=== PATIENT | female | born 1995 | race Caucasian/White ===

== ENCOUNTER 2017-04-15 12:22 | Emergency (ER) | payer BC ==
[~2017-04-15] VITALS: Ht 162.6 cm; Wt 61.2 kg
[2017-04-15] MEDS ORDERED: IV NORMAL SALINE 1,000ML 1,000 ML IV SCH (13:22)
[2017-04-15 13:44] LABS: BASO % 0 % (0-3); EOS # 0.1 x10^3/uL (0.0-0.7); EOS % 1 % (0-3); HEMATOCRIT 37.7 % (36.0-47.0); HEMOGLOBIN 12.9 g/dL (12.0-15.5); LYMPH # 2.8 x10^3/uL (1.0-4.8); LYMPH % 40 % (24-48); MEAN CORPUSCULAR HEMOGLOBIN 30 pg (25-35); MEAN CORPUSCULAR HGB CONC 34 g/dL (31-37); MEAN CORPUSCULAR VOLUME 88 fL (79-100); MONO # 0.4 x10^3/uL (0.0-1.1); MONO % 7 % (0-9); NEUT # 3.6 x10^3uL (1.8-7.7); NEUT % 52 % (31-73); PLATELET COUNT 207 x10^3/uL (140-400); RED BLOOD COUNT 4.28 x10^6/uL (3.50-5.40); WHITE BLOOD COUNT 6.9 x10^3/uL (4.0-11.0)
[2017-04-15 13:50] LABS: C REACTIVE PROTEIN 0.7 mg/L (0-3.3); CALCIUM 8.3 mg/dL (8.5-10.1); CREATININE 0.8 mg/dL (0.6-1.0); GFR 90.5; POTASSIUM 4.1 mmol/L (3.5-5.1)
[2017-04-15] MEDS ORDERED: KETOROLAC 30 MG/ML VIAL. IV ONE (13:50)
--- NOTE | 2017-04-15 15:17 | PHYS DOC ---
General Chief Complaint: FACE PROBLEM Stated Complaint: FACE PROBLEM Time Seen by MD: 13:22 Source: patient, family Exam Limitations: no limitations Problems: History of Present Illness Initial Comments Patient is a 22-year-old female who is accompanied by her mother with a complaint of left sided facial weakness. Patient states that this morning when she woke her grandmother took a look at her and asked her if she was feeling okay. She told the patient that she had a left-sided facial droop. The patient called her mother and came to the ED for evaluation. Patient states she has been seen at [facility] for this condition once before she says she was told that she was lying. I requested those ED records (from 2013) and the records actually reveal that the patient apparently grew tired of waiting in the waiting room he left without being seen. Patient states that she's had CT evaluation in the past and that no doctor has been able to find out why she left-sided facial weakness numbness and tingling. She denies any other ear, nose or eye symptoms no fever chills sweats or myalgias patient does state that she has a mild global headache consistent with "a normal headache." No nausea or photophobia no unexplained weight loss or night sweats. While talking with the patient I do observe her left sided of her face to be moving. Patient's vital signs are stable in the emergency department. Timing/Duration: unsure Severity: moderate Modifying Factors: improves with other Associated Symptoms: headaches, weakness, other Allergies: Coded Allergies: Sulfa (Sulfonamide Antibiotics) (Verified Allergy, Intermediate, 04/15/17) prednisone (Verified Allergy, Intermediate, 04/15/17) Past Medical History Medical History: other (orthostatic hypotension, iron deficiency (patient follows with Heme/Onc at ), asthma) Surgical History: noncontributory Social History Smoker: non-smoker Alcohol: none Drugs: none Review of Systems Constitutional: denies chills, denies diaphoresis, denies fever, denies malaise EENTM: see HPI, denies eye pain, denies ear pain, denies nose pain, denies throat pain, denies mouth pain Respiratory: denies cough, denies shortness of breath, denies wheezing Cardiovascular: denies chest pain, denies palpitations, denies syncope Gastrointestinal: denies abdominal pain, denies nausea, denies vomiting Genitourinary: denies frequency, denies hematuria Musculoskeletal: denies back pain, denies joint swelling, denies neck pain Skin: denies lesions, denies lumps, denies rash Psychiatric/Neurological: see HPI Hematologic/Lymphatic: see HPI, denies easy bleeding, denies easy bruising Physical Exam General Appearance: WD/WN, no apparent distress Eyes: bilateral eye normal inspection, bilateral eye PERRL, bilateral eye EOMI Ear, Nose, Throat: hearing grossly normal, normal ENT inspection, normal pharynx Neck: non-tender, supple Respiratory: normal breath sounds, no respiratory distress Cardiovascular: normal peripheral pulses, regular rate, rhythm Gastrointestinal: non tender, soft Back: no CVA tenderness, no vertebral tenderness Extremities: non-tender, normal inspection Neurologic/Psychiatric: 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 She lightly closes them. I repeat the requests and she states that she's been shutting them as I'm asking her to. Her mother becomes frustrated and comes over and reaches as if to put her one hand on the patient's forehead and the other on her chin. The patient closes her eyes very tightly reacting to get away. This is the same course with remainder of her facial muscle testing it is as if she is purposely putting forth no effort) Skin: normal color, warm/dry Orders, Labs, Meds I discussed indications for imaging, I do not feel it is necessary at this time. I agreed to some screening labs and IV fluids the patient received 1 L normal saline IV. CBC, chemistry, CRP all normal. 1526: I rechecked the patient she is feeling much better her headache has resolved. Her left face symptoms, tingling and numbness persist. She continues to have no facial droop and full facial muscle activation. I discussed the treatment plan moving forward. I advised the patient that she needed an outpatient neurology evaluation. 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 Patient used to see Dr. Felix but does not follow up with primary care anymore. I advised her to continue following with Dr. Felix for health maintenance and she will need to have a primary care doctor in order to receive a neurology referral. She expressed understanding. Departure Time of Disposition: 15:27 Disposition: 01 HOME, SELF-CARE Diagnosis: skin sensation disturbance NOS Condition: GOOD Additional Instructions: Aggressive hydration with gatorade, water. OTC tylenol as needed. As discussed, you need an outpatient neurologic evaluation. Follow up with Dr Felix this week for recheck and neurology referral. Return to ED with new or changing symptoms. RICARDO DURAN DO Apr 15, 2017 15:17
[2017-04-15 15:45] VITALS: BP 100/62
== END 2017-04-15 15:45 | disposition home or self-care (01) ==
LOC: ER 12:22
DX: R20.9 Unspecified disturbances of skin sensation (principal); J45.909 Unspecified asthma, uncomplicated; Z86.2 Personal history of diseases of the blood and blood-forming organs and certain disorders involving the immune mechanism; Z88.2 Allergy status to sulfonamides; Z88.8 Allergy status to other drugs, medicaments and biological substances
CPT/HCPCS: 36415; 80048; 85027; 86140; 96361; 96374; 99284; J1885; J7030

== ENCOUNTER 2018-05-31 16:58 | Emergency (ER) | payer BC ==
[~2018-05-31] VITALS: Ht 162.6 cm; Wt 72.6 kg
[2018-05-31 18:09] VITALS: BP 125/67
[2018-05-31] MEDS ORDERED: AMOXICILLIN/K CLAV 875/125MG TABLET. PO ONE (18:15)
[2018-05-31] MEDS ORDERED: AMOX1TAB61 PO (18:17)
--- NOTE | 2018-05-31 18:34 | PHYS DOC ---
Past History Past Medical History: Asthma, Depression, Other Past Surgical History: No Surgical History Alcohol Use: Occasionally Drug Use: None Adult General Chief Complaint Chief Complaint: COUGH HPI HPI 23-year-old female presents with 10 day history of progressive congestion and sinus pressure. Days ago the patient also developed a productive cough with thick sputum. She is concerned that her upper history symptoms have settled into her chest and she might get pneumonia. She had a fever at home yesterday up to 104. It was amenable to Tylenol. Her last dose of Tylenol was this morning before 8 AM. The patient is unsure of sick contacts. She denies dysuria or hematuria. She has not had nausea, vomiting, or diarrhea. Review of Systems Review of Systems Constitutional: Denies fever or chills [] Eyes: Denies change in visual acuity, redness, or eye pain [] HENT: Nasal congestion with[] Respiratory: Cough[] Cardiovascular: No additional information not addressed in HPI [] GI: Denies abdominal pain, nausea, vomiting, bloody stools or diarrhea [] : Denies dysuria or hematuria [] Musculoskeletal: Denies back pain or joint pain [] Integument: Denies rash or skin lesions [] Neurologic: Denies headache, focal weakness or sensory changes [] Endocrine: Denies polyuria or polydipsia [] All other systems were reviewed and found to be within normal limits, except as documented in this note. Current Medications Current Medications Current Medications Medications (Trade) Dose Ordered Sig/Syd Start Time Stop Time Status Last Admin Dose Admin Amoxicillin/ Clavulanate Potassium (Augmentin 875/ 125mg) 1 tab 1X ONCE 05/31/18 18:15 05/31/18 18:20 DC 05/31/18 18:22 1 TAB Allergies Allergies Allergies Coded Allergies Type Severity Reaction Last Updated Verified Sulfa (Sulfonamide Antibiotics) Allergy Intermediate 04/15/17 Yes prednisone Allergy Intermediate 04/15/17 Yes Physical Exam Physical Exam Constitutional: Well developed, well nourished, no acute distress, non-toxic appearance. [] HENT: Normocephalic, atraumatic, bilateral external ears normal, oropharynx moist, no oral exudates, nose normal. Pain to palpation over the maxillary sinuses[] Eyes: PERRLA, EOMI, conjunctiva normal, no discharge. [] Neck: Normal range of motion, no tenderness, supple, no stridor. [] Cardiovascular:Heart rate regular rhythm, no murmur [] Lungs & Thorax: Bilateral breath sounds with mild bilateral wheezes at the bases[] Abdomen: Bowel sounds normal, soft, no tenderness, no masses, no pulsatile masses. [] Skin: Warm, dry, no erythema, no rash. [] Back: No tenderness, no CVA tenderness. [] Extremities: No tenderness, no cyanosis, no clubbing, ROM intact, no edema. [] Neurologic: Alert and oriented X 3, normal motor function, normal sensory function, no focal deficits noted. [] Psychologic: Affect normal, judgement normal, mood normal. [] Current Patient Data Vital Signs Vital Signs Date Time Temp Pulse Resp B/P (MAP) Pulse Ox O2 Delivery O2 Flow Rate FiO2 05/31/18 18:09 91 18 125/67 (86) 98 Room Air 05/31/18 17:05 98.7 EKG EKG [] Radiology/Procedures Radiology/Procedures [] Course & Med Decision Making Course & Med Decision Making Pertinent Labs and Imaging studies reviewed. (See chart for details) The patient appears to have a sinusitis. I will treat her with Augmentin for 7 days. She also has some mild wheezing in her lungs. Her oxygen saturation has been normal throughout her stay in the ED. She does have mild intermittent asthma. I recommended that she use her albuterol MDI regularly for the next couple of days. She stated verbal understanding. She is stable for discharge at this time. [] Dragon Disclaimer Dragon Disclaimer This electronic medical record was generated, in whole or in part, using a voice recognition dictation system. Departure Departure: Impression: Primary Impression: Sinusitis, acute Disposition: 01 HOME, SELF-CARE Condition: STABLE Patient Instructions: Sinusitis, [id number] Scripts Amoxicillin/Potassium Clav (AUGMENTIN 875-125 TABLET) 1 Each Tablet 1 TAB PO BID, #14 TAB Prov: DAVID SWEET DO 05/31/18 DAVID SWEET DO May 31, 2018 18:34
--- NOTE | 2018-05-31 19:22 | RAD ---
Chest PA and lateral: Reason for examination: Cough and shortness of breath for 2 weeks. History of asthma. The heart size is normal. Mediastinum is unremarkable. Lung iverson are clear. No acute bony abnormalities are seen. Impression: No acute cardiopulmonary disease. Electronically signed by: Laila Banks MD (05/31/2018 7:19 PM) [facility]
== END 2018-05-31 18:23 | disposition home or self-care (01) ==
LOC: ER 16:58
DX: J01.90 Acute sinusitis, unspecified (principal); J45.909 Unspecified asthma, uncomplicated; F32.9 Major depressive disorder, single episode, unspecified; Z88.2 Allergy status to sulfonamides; Z88.8 Allergy status to other drugs, medicaments and biological substances
CPT/HCPCS: 71046; 99284

== ENCOUNTER 2019-02-05 18:13 | Emergency (ER) | payer BC ==
[~2019-02-05] VITALS: Ht 162.6 cm; Wt 74.8 kg
[~2019-02-05 18:13] MED LIST: AMOX1TAB61 PO
[2019-02-05] MEDS ORDERED: IV NORMAL SALINE 1,000ML 1,000 ML IV ONE (18:30)
--- NOTE | 2019-02-05 18:38 | PHYS DOC ---
Past History Past Medical History: Asthma, Depression, Other Past Surgical History: No Surgical History Alcohol Use: Occasionally Drug Use: None Adult General Chief Complaint Chief Complaint: SHORTNESS OF BREATH HPI HPI 23-year-old female presents with 4 day history of cough and shortness of breath. The patient has a history of asthma for which she uses albuterol. She has had increased coughing with clear sputum. She also admits that she has been weeping with CBD oil lately. He was seen in an urgent care yesterday and diagnosed with pneumonia though they did not take a chest x-ray. She was placed on Levaquin. She's had 2 doses. Patient denies fever. She has been using her albuterol times a day. She took a breathing treatment just prior to arrival. Review of Systems Review of Systems Constitutional: Denies fever or chills [] Eyes: Denies change in visual acuity, redness, or eye pain [] HENT: Denies nasal congestion or sore throat [] Respiratory: Cough with shortness of breath [] Cardiovascular: No additional information not addressed in HPI [] GI: Denies abdominal pain, nausea, vomiting, bloody stools or diarrhea [] : Denies dysuria or hematuria [] Musculoskeletal: Denies back pain or joint pain [] Integument: Denies rash or skin lesions [] Neurologic: Denies headache, focal weakness or sensory changes [] Endocrine: Denies polyuria or polydipsia [] All other systems were reviewed and found to be within normal limits, except as documented in this note. Current Medications Current Medications Current Medications Medications (Trade) Dose Ordered Sig/[facility] Start Time Stop Time Status Last Admin Dose Admin Sodium Chloride 1,000 ml @ 1,000 mls/hr 1X ONCE 02/05/19 18:30 02/05/19 19:29 Allergies Allergies Allergies Coded Allergies Type Severity Reaction Last Updated Verified Sulfa (Sulfonamide Antibiotics) Allergy Intermediate 04/15/17 Yes prednisone Allergy Intermediate 04/15/17 Yes Physical Exam Physical Exam Constitutional: Well developed, well nourished, no acute distress, non-toxic appearance. [] HENT: Normocephalic, atraumatic, bilateral external ears normal, oropharynx moist, no oral exudates, nose normal. [] Eyes: PERRLA, EOMI, conjunctiva normal, no discharge. [] Neck: Normal range of motion, no tenderness, supple, no stridor. [] Cardiovascular:Heart rate regular rhythm, no murmur [] Lungs & Thorax: Bilateral breath sounds clear to auscultation. Coughing[] Abdomen: Bowel sounds normal, soft, no tenderness, no masses, no pulsatile masses. [] Skin: Warm, dry, no erythema, no rash. [] Back: No tenderness, no CVA tenderness. [] Extremities: No tenderness, no cyanosis, no clubbing, ROM intact, no edema. [] Neurologic: Alert and oriented X 3, normal motor function, normal sensory function, no focal deficits noted. [] Psychologic: Affect normal, judgement normal, mood normal. [] EKG EKG [] Radiology/Procedures Radiology/Procedures [] Impressions: CHEST AP ONLY History: Cough, shortness of breath Comparison: May 31, 2018 Findings: Single view of the chest is submitted. There is no infiltrate, pneumothorax, or effusion. The pericardial cardiac silhouette is within normal limits in size. Impression: 1. There is no radiographic evidence of acute cardiopulmonary disease. Electronically signed by: Juanis Selby MD (02/05/2019 6:52 PM) [facility] DICTATED AND SIGNED BY: JUANIS SELBY MD DATE: 02/05/191851 CC: DAVID SWEET DO; PCP,NO ~ Course & Med Decision Making Course & Med Decision Making Pertinent Labs and Imaging studies reviewed. (See chart for details) I have given the patient a DuoNeb treatment. Her chest x-rays negative for pneumonia. Her labs are unremarkable. This is likely exasperation of her asthma. Patient does have somewhat diminished breath sounds, so I will treat her with Decadron IV. She is only allergic to the oral prednisone preparation. She is stable for discharge at this time. [] Dragon Disclaimer Dragon Disclaimer This electronic medical record was generated, in whole or in part, using a voice recognition dictation system. Departure Departure: Impression: Primary Impression: Asthma exacerbation Disposition: HOME, SELF-CARE Condition: STABLE Referrals: PCP,NO (PCP) Patient Instructions: Asthma, Adult, [id number] Problem Qualifiers Primary Impression: Asthma exacerbation Asthma severity: mild Asthma persistence: intermittent Qualified Codes: J45.21 - Mild intermittent asthma with (acute) exacerbation DAVID SWEET DO February 05, 2019 18:38
[2019-02-05] MEDS ORDERED: IPRATRPIUM/ALBUTEROL 0.5/2.5MG 3 ML NEBU. NEB ONE (18:45)
--- NOTE | 2019-02-05 18:54 | RAD ---
CHEST AP ONLY History: Cough, shortness of breath Comparison: May 31, 2018 Findings: Single view of the chest is submitted. There is no infiltrate, pneumothorax, or effusion. The pericardial cardiac silhouette is within normal limits in size. Impression: 1. There is no radiographic evidence of acute cardiopulmonary disease. Electronically signed by: Christopher Walter MD (02/05/2019 6:52 PM) [facility]
[2019-02-05] MEDS ORDERED: methylPREDNISolone SOD SUCC PF 125 MG/2 ML VIAL. IV ONE (19:15)
[2019-02-05 19:16] LABS: BASO % 1 % (0-3); EOS # 0.1 x10^3/uL (0.0-0.7); EOS % 2 % (0-3); HEMATOCRIT 40.7 % (36.0-47.0); HEMOGLOBIN 14.1 g/dL (12.0-15.5); LYMPH % 37 % (24-48); MEAN CORPUSCULAR HEMOGLOBIN 29 pg (25-35); MEAN CORPUSCULAR HGB CONC 35 g/dL (31-37); MEAN CORPUSCULAR VOLUME 85 fL (79-100); MONO # 0.7 x10^3/uL (0.0-1.1); MONO % 12 % (0-9); NEUT # 2.7 x10^3uL (1.8-7.7); NEUT % 49 % (31-73); PLATELET COUNT 196 x10^3/uL (140-400); RED BLOOD COUNT 4.82 x10^6/uL (3.50-5.40); RED CELL DISTRIBUTION WIDTH 12.2 % (11.5-14.5); WHITE BLOOD COUNT 5.6 x10^3/uL (4.0-11.0)
[2019-02-05 19:18] LABS: INFLUENZA A PATIENT NEGATIVE (NEGATIVE); INFLUENZA B PATIENT NEGATIVE (NEGATIVE)
[2019-02-05 19:27] LABS: ALBUMIN 3.9 g/dL (3.4-5.0); CREATININE 0.8 mg/dL (0.6-1.0); GFR 89.7; POTASSIUM 3.4 mmol/L (3.5-5.1); TOTAL BILIRUBIN 0.3 mg/dL (0.2-1.0); TOTAL PROTEIN 7.7 g/dL (6.4-8.2)
[2019-02-05] MEDS ORDERED: DEXAMETHASONE SOD PHOS 10 MG/ML VIAL IV ONE (19:45)
[2019-02-05 19:54] VITALS: BP 102/59
[2019-02-06] MEDS ORDERED: CODE10LI PO (23:17)
[2019-02-06] MEDS ORDERED: IPRA3AMP29 NEB (23:19)
== END 2019-02-05 20:00 | disposition home or self-care (01) ==
LOC: ER 18:13
DX: J45.21 Mild intermittent asthma with (acute) exacerbation (principal); F32.9 Major depressive disorder, single episode, unspecified; Z88.2 Allergy status to sulfonamides; Z88.8 Allergy status to other drugs, medicaments and biological substances
CPT/HCPCS: 36415; 71045; 80053; 85025; 87804; 94640; 96374; 99285; J1100; J7620; J7030

== ENCOUNTER 2019-02-06 20:42 | Emergency (ER) | payer BC ==
[~2019-02-06] VITALS: Ht 162.6 cm; Wt 74.8 kg
[2019-02-06 20:45] VITALS: BP 125/69
[2019-02-06] MEDS ORDERED: IPRATRPIUM/ALBUTEROL 0.5/2.5MG 3 ML NEBU. NEB ONE (21:30)
[2019-02-06 21:44] LABS: BASO % 0 % (0-3); EOS % 0 % (0-3); HEMATOCRIT 38.2 % (36.0-47.0); LYMPH # 1.5 x10^3/uL (1.0-4.8); LYMPH % 18 % (24-48); MEAN CORPUSCULAR HEMOGLOBIN 29 pg (25-35); MEAN CORPUSCULAR HGB CONC 34 g/dL (31-37); MEAN CORPUSCULAR VOLUME 84 fL (79-100); MONO # 0.8 x10^3/uL (0.0-1.1); MONO % 10 % (0-9); NEUT % 72 % (31-73); PLATELET COUNT 174 x10^3/uL (140-400); RED BLOOD COUNT 4.53 x10^6/uL (3.50-5.40); RED CELL DISTRIBUTION WIDTH 12.5 % (11.5-14.5); WHITE BLOOD COUNT 8.3 x10^3/uL (4.0-11.0)
[2019-02-06 22:00] LABS: ALBUMIN 3.9 g/dL (3.4-5.0); CALCIUM 9.2 mg/dL (8.5-10.1); GFR 69.3; TOTAL BILIRUBIN 0.2 mg/dL (0.2-1.0); TOTAL PROTEIN 7.7 g/dL (6.4-8.2)
[2019-02-06] MEDS ORDERED: IV NORMAL SALINE 1,000ML 1,000 ML IV ONE (22:00)
[2019-02-06] MEDS ORDERED: IOHEXOL 350 MG/ML 100 ML VIAL. IV ONE (22:00)
[2019-02-06] MEDS ORDERED: POTASSIUM CHLORIDE 20 MEQ TABLET.ER. PO ONE (22:30)
--- NOTE | 2019-02-06 22:30 | RAD ---
EXAM: CT chest with contrast - pulmonary embolus protocol CLINICAL HISTORY: Evaluate for pulmonary embolus. History of asthma. COMPARISON: None. TECHNIQUE: CT of the chest following the administration of intravenous contrast during the pulmonary arterial phase. Axial, coronal and sagittal reformatted images were generated including MIP images. ---PQRS compliance statement - One or more of the following individualized dose reduction techniques were utilized for this study: 1. Automated exposure control 2. Adjustment of the mA and/or kV according to patient size 3. Use of iterative reconstruction technique--- FINDINGS: CHEST: Diagnostic quality: Suboptimal. Pulmonary emboli: No pulmonary emboli to the level of the lobar branches. More peripheral vessels are not well assessed. Right heart strain: None Pulmonary arteries: Normal in caliber. No pleural effusion or pneumothorax. No mediastinal or hilar lymphadenopathy by size criteria. No axillary lymphadenopathy. No lobar consolidation. No suspicious lung nodule or mass is seen. Visualized Upper abdomen: Upper abdomen is unremarkable. Bones: Sclerotic focus within the right glenoid, bone island IMPRESSION: Suboptimal contrast bolus timing. Within these constraints, no pulmonary emboli to the level of the lobar branches. More peripheral vessels are not well assessed. Electronically signed by: Nickolas Morocho MD (02/06/2019 10:27 PM) [id number]
--- NOTE | 2019-02-06 22:52 | PHYS DOC ---
Past History Past Medical History: Asthma, Depression, GERD Past Surgical History: Cholecystectomy Alcohol Use: Occasionally Drug Use: None Adult General Chief Complaint Chief Complaint: DYSPNEA/RESPIRATOY DISTRESS HPI HPI When he 3-year-old female returns emergency room with continued shortness of breath. I saw her in this emergency room yesterday. She has been examined her albuterol every 4 hours, but does not feel like she can get a deep breath. The patient is on Depo-Provera shots. She denies smoking, but admits to the [facility] oil recently. She has not been camping since yesterday. Patient denies fever. She does have a cough. She denies nausea, vomiting. Review of Systems Review of Systems Constitutional: Denies fever or chills [] Eyes: Denies change in visual acuity, redness, or eye pain [] HENT: Denies nasal congestion or sore throat [] Respiratory: Cough with shortness of breath [] Cardiovascular: No additional information not addressed in HPI [] GI: Denies abdominal pain, nausea, vomiting, bloody stools or diarrhea [] : Denies dysuria or hematuria [] Musculoskeletal: Denies back pain or joint pain [] Integument: Denies rash or skin lesions [] Neurologic: Denies headache, focal weakness or sensory changes [] Endocrine: Denies polyuria or polydipsia [] All other systems were reviewed and found to be within normal limits, except as documented in this note. Current Medications Current Medications Current Medications Medications (Trade) Dose Ordered Sig/Syd Start Time Stop Time Status Last Admin Dose Admin Albuterol/ Ipratropium (Duoneb) 3 ml 1X ONCE 02/06/19 21:30 02/06/19 21:31 DC 02/06/19 20:58 3 ML Iohexol (Omnipaque 350 Mg/ml) 100 ml 1X ONCE 02/06/19 22:00 02/06/19 22:01 DC 02/06/19 21:48 100 ML Potassium Chloride (Klor-Con) 40 meq 1X ONCE 02/06/19 22:30 02/06/19 22:31 DC 02/06/19 22:35 40 MEQ Sodium Chloride 1,000 ml @ 1,000 mls/hr 1X ONCE 02/06/19 22:00 02/06/19 22:59 02/06/19 21:53 1,000 MLS/HR Allergies Allergies Allergies Coded Allergies Type Severity Reaction Last Updated Verified Sulfa (Sulfonamide Antibiotics) Allergy Intermediate 04/15/17 Yes prednisone Allergy Intermediate 02/06/19 Yes Physical Exam Physical Exam Constitutional: Well developed, well nourished, no acute distress, non-toxic appearance. [] HENT: Normocephalic, atraumatic, bilateral external ears normal, oropharynx moist, no oral exudates, nose normal. [] Eyes: PERRLA, EOMI, conjunctiva normal, no discharge. [] Neck: Normal range of motion, no tenderness, supple, no stridor. [] Cardiovascular:Heart rate regular rhythm, no murmur [] Lungs & Thorax: Bilateral breath sounds diminished but clear to auscultation [] Abdomen: Bowel sounds normal, soft, no tenderness, no masses, no pulsatile masses. [] Skin: Warm, dry, no erythema, no rash. [] Back: No tenderness, no CVA tenderness. [] Extremities: No tenderness, no cyanosis, no clubbing, ROM intact, no edema. [] Neurologic: Alert and oriented X 3, normal motor function, normal sensory function, no focal deficits noted. [] Psychologic: Affect normal, judgement normal, mood normal. [] Current Patient Data Vital Signs Vital Signs Date Time Temp Pulse Resp B/P (MAP) Pulse Ox O2 Delivery O2 Flow Rate FiO2 02/06/19 20:45 98.0 107 32 96 Room Air Lab Results Laboratory Tests Test 02/06/19 21:25 White Blood Count 8.3 x10^3/uL (4.0-11.0) Red Blood Count 4.53 x10^6/uL (3.50-5.40) Hemoglobin 13.0 g/dL (12.0-15.5) Hematocrit 38.2 % (36.0-47.0) Mean Corpuscular Volume 84 fL (79-100) Mean Corpuscular Hemoglobin 29 pg (25-35) Mean Corpuscular Hemoglobin Concent 34 g/dL (31-37) Red Cell Distribution Width 12.5 % (11.5-14.5) Platelet Count 174 x10^3/uL (140-400) Neutrophils (%) (Auto) 72 % (31-73) Lymphocytes (%) (Auto) 18 % (24-48) L Monocytes (%) (Auto) 10 % (0-9) H Eosinophils (%) (Auto) 0 % (0-3) Basophils (%) (Auto) 0 % (0-3) Neutrophils # (Auto) 6.0 x10^3uL (1.8-7.7) Lymphocytes # (Auto) 1.5 x10^3/uL (1.0-4.8) Monocytes # (Auto) 0.8 x10^3/uL (0.0-1.1) Eosinophils # (Auto) 0.0 x10^3/uL (0.0-0.7) Basophils # (Auto) 0.0 x10^3/uL (0.0-0.2) Sodium Level 142 mmol/L (136-145) Potassium Level 3.0 mmol/L (3.5-5.1) L Chloride Level 105 mmol/L (98-107) Carbon Dioxide Level 22 mmol/L (21-32) Anion Gap 15 (6-14) H Blood Urea Nitrogen 9 mg/dL (7-20) Creatinine 1.0 mg/dL (0.6-1.0) Estimated GFR (Cockcroft-Gault) 69.3 BUN/Creatinine Ratio 9 (6-20) Glucose Level 134 mg/dL (70-99) H Calcium Level 9.2 mg/dL (8.5-10.1) Total Bilirubin 0.2 mg/dL (0.2-1.0) Aspartate Amino Transferase (AST) 18 U/L (15-37) Alanine Aminotransferase (ALT) 39 U/L (14-59) Alkaline Phosphatase 83 U/L (46-116) Total Protein 7.7 g/dL (6.4-8.2) Albumin 3.9 g/dL (3.4-5.0) Albumin/Globulin Ratio 1.0 (1.0-1.7) EKG EKG [] Radiology/Procedures Radiology/Procedures [] Impressions: EXAM: CT chest with contrast - pulmonary embolus protocol CLINICAL HISTORY: Evaluate for pulmonary embolus. History of asthma. COMPARISON: None. TECHNIQUE: CT of the chest following the administration of intravenous contrast during the pulmonary arterial phase. Axial, coronal and sagittal reformatted images were generated including MIP images. ---PQRS compliance statement - One or more of the following individualized dose reduction techniques were utilized for this study: 1. Automated exposure control 2. Adjustment of the mA and/or kV according to patient size 3. Use of iterative reconstruction technique--- FINDINGS: CHEST: Diagnostic quality: Suboptimal. Pulmonary emboli: No pulmonary emboli to the level of the lobar branches. More peripheral vessels are not well assessed. Right heart strain: None Pulmonary arteries: Normal in caliber. No pleural effusion or pneumothorax. No mediastinal or hilar lymphadenopathy by size criteria. No axillary lymphadenopathy. No lobar consolidation. No suspicious lung nodule or mass is seen. Visualized Upper abdomen: Upper abdomen is unremarkable. Bones: Sclerotic focus within the right glenoid, bone island IMPRESSION: Suboptimal contrast bolus timing. Within these constraints, no pulmonary emboli to the level of the lobar branches. More peripheral vessels are not well assessed. Electronically signed by: Nickolas Morocho MD (02/06/2019 10:27 PM) [facility] DICTATED AND SIGNED BY: NICKOLAS MOROCHO MD DATE: 02/06/192226 CC: DAVID SWEET DO; PCP,NO ~ Course & Med Decision Making Course & Med Decision Making Pertinent Labs and Imaging studies reviewed. (See chart for details) The patient had a chest x-ray yesterday was negative for pneumonia. She was given a DuoNeb in the ED, which did not seem to help very much. The patient was also given 10 mg of Decadron IV yesterday. She is allergic to oral prednisone. CTA of the chest does not show PE. Her labs are unremarkable except for a potassium of 3.0. I have given her a replacement. Her vital signs are normal except for mild tachycardia. O2 saturation is normal. I'll not sure what else I can do for the patient. This is likely a viral illness exacerbating her asthma. She uses a nebulizer at home. I will give her prescription for DuoNeb to use twice a day in addition to her albuterol. I will also give her a codeine based cough syrup to help with her cough so she can sleep. She is stable for discharge at this time. [] Dragon Disclaimer Dragon Disclaimer This electronic medical record was generated, in whole or in part, using a voice recognition dictation system. Departure Departure: Impression: Primary Impression: Viral URI with cough Additional Impression: Asthma exacerbation Disposition: HOME, SELF-CARE Condition: STABLE Referrals: PCP,NO (PCP) Patient Instructions: Upper Respiratory Infection, Adult, [id number] Scripts Codeine Phosphate/Guaifenesin (Guaifen-Codeine 200-20 mg/10Ml) 10 Ml Liquid 10 ML PO Q6HRS PRN for COUGH, #1 BOTTLE Prov: DAVID SWEET DO 02/06/19 Problem Qualifiers Additional Impression: Asthma exacerbation Asthma severity: mild Asthma persistence: persistent Qualified Codes: J45.31 - Mild persistent asthma with (acute) exacerbation DAVID SWEET DO February 06, 2019 22:52
[2019-02-06] MEDS ORDERED: CODE10LI PO (23:17)
[2019-02-06] MEDS ORDERED: IPRA3AMP29 NEB (23:19)
== END 2019-02-06 23:22 | disposition home or self-care (01) ==
LOC: ER 20:42
DX: J45.31 Mild persistent asthma with (acute) exacerbation (principal); J06.9 Acute upper respiratory infection, unspecified; B97.89 Other viral agents as the cause of diseases classified elsewhere; F32.9 Major depressive disorder, single episode, unspecified; K21.9 Gastro-esophageal reflux disease without esophagitis; Z88.2 Allergy status to sulfonamides; Z88.8 Allergy status to other drugs, medicaments and biological substances
CPT/HCPCS: 36415; 71275; 80053; 85025; 94640; 99285; J7620; Q9967; J7030

== ENCOUNTER 2019-09-30 21:54 | Emergency (ER) | payer BC ==
[~2019-09-30] VITALS: Ht 162.6 cm; Wt 74.3 kg
[~2019-09-30 21:54] MED LIST changes: +CODE10LI PO; +IPRA3AMP29 NEB
--- NOTE | 2019-09-30 23:02 | PHYS DOC ---
Past History Past Medical History: Asthma, Depression, GERD, High Cholesterol, Other Additional Past Medical Histor: Vitamin D defeciency, iron defeciency, Emery- Nicolas Past Surgical History: Cholecystectomy Alcohol Use: Occasionally Drug Use: None Adult General Chief Complaint Chief Complaint: KNEE INJURY HPI HPI Patient is a 24-year-old female presenting with chief complaint of knee injuyr last week twisted felt a pop while carrying a box pain increasing Review of Systems Review of Systems Co Allergies Allergies Allergies Coded Allergies Type Severity Reaction Last Updated Verified Sulfa (Sulfonamide Antibiotics) Allergy Intermediate 04/15/17 Yes prednisone Allergy Intermediate 02/06/19 Yes Physical Exam Physical Exam Constitutional: Well developed, well nourished, no acute distress, non-toxic appearance. [] HENT: Normocephalic, atraumatic, bilateral external ears normal, oropharynx moist, no oral exudates, nose normal. [] Eyes: PERRLA, EOMI, conjunctiva normal, no discharge. [] Pulmonary: Normal respiratory effort no increased work of breathing no obvious chest wall trauma Skin: Warm, dry, no erythema, no rash. [] Back: No tenderness, no CVA tenderness. [] Extremities: Small moderate knee effusion range of motion is actually fairly intact tenderness to palpation medial joint line tenderness with the McBurney's test Neurologic: Alert and oriented X 3, normal motor function, normal sensory function, no focal deficits noted. [] Psychologic: Affect normal, judgement normal, mood normal. [] Current Patient Data Vital Signs Vital Signs Date Time Temp Pulse Resp B/P (MAP) Pulse Ox O2 Delivery O2 Flow Rate FiO2 09/30/19 22:20 99.0 108 18 100 Room Air EKG EKG [] Radiology/Procedures Radiology/Procedures [] Course & Med Decision Making Course & Med Decision Making Pertinent Labs and Imaging studies reviewed. (See chart for details) []Suspect internal derangement x-ray by my read negative patient given the immobilizer and crutches and advised follow up with primary care for MRI if symptoms persist Dragon Disclaimer Dragon Disclaimer This electronic medical record was generated, in whole or in part, using a voice recognition dictation system. Departure Departure: Impression: Primary Impression: Knee injury Disposition: 01 HOME, SELF-CARE Condition: STABLE Referrals: JOEL YU PAC (PCP) Patient Instructions: Knee - Cartilage (Meniscus) Injury ALEXANDRA COELLO MD Sep 30, 2019 23:02
[2019-09-30] MEDS ORDERED: KETOROLAC 60 MG/2 ML VIAL. IM ONE (23:04)
[2019-09-30] MEDS ORDERED: KETOROLAC 30 MG/ML VIAL. IM ONE (23:15)
--- NOTE | 2019-09-30 23:23 | RAD ---
Left knee 3 views: Reason for examination: Trauma. No fracture or dislocation is seen. The bone density is normal. No abnormal periosteal reaction is seen. Joint spaces are maintained. No joint effusion is evident. IMPRESSION: No acute bony abnormality at the left knee. Electronically signed by: Laila Banks MD (09/30/2019 11:21 PM) [id number]
[2019-09-30] MEDS ORDERED: IBUPROFEN 600 MG TABLET. PO ONE (23:30)
== END 2019-09-30 23:11 | disposition home or self-care (01) ==
LOC: ER 21:54
DX: S89.92XA Unspecified injury of left lower leg, initial encounter (principal); J45.909 Unspecified asthma, uncomplicated; K21.9 Gastro-esophageal reflux disease without esophagitis; E78.00 Pure hypercholesterolemia, unspecified; Z88.2 Allergy status to sulfonamides; Z88.8 Allergy status to other drugs, medicaments and biological substances; X50.0XXA Overexertion from strenuous movement or load, initial encounter; Y93.89 Activity, other specified; Y92.89 Other specified places as the place of occurrence of the external cause; Y99.8 Other external cause status
CPT/HCPCS: 29505; 73562; 96372; 99284; J1885

== ENCOUNTER 2019-10-31 17:21 | Emergency (ER) | payer BC ==
[~2019-10-31] VITALS: Ht 162.6 cm; Wt 73.7 kg
--- NOTE | 2019-10-31 17:46 | PHYS DOC ---
Past History Past Medical History: Asthma, Depression, GERD, High Cholesterol, Other Additional Past Medical Histor: Vitamin D defeciency, iron defeciency, Emery- Nicolas, colitis esinophilic Past Surgical History: Cholecystectomy Alcohol Use: Occasionally Drug Use: None Adult General Chief Complaint Chief Complaint: PAIN ON URINATION ".. I got pain on my lt flank... blood in my urine.. HPI HPI Patient is a 24 year old female who presents with above hx and complaints of dysuria. He has a history of kidney stones probably 4-5 episodes. History of eosinophilic colitis,Emery Nicolas virus IBS, Elevated cholesterol, Vit. D def., and Insomnia. She states her left flank and abdomen pain does not feel like prior kidney stones Patient rates her left flank and lower abdomen pain 7-8 out of 10. Patient denies any trauma. Patient denies any intake bad food. Patient normally follows with Dr. Alfredo fournier or Dr. Yu. Review of Systems Review of Systems Constitutional: subjective complaints of fever or chills [] Eyes: Denies change in visual acuity, redness, or eye pain [] HENT: Denies nasal congestion or sore throat [] Respiratory: Denies cough or shortness of breath [] Cardiovascular: No additional information not addressed in HPI [] GI: Complaints of left flank and lower abdominal pain, nausea. Denies, vomiting, bloody stools or diarrhea [] : Denies dysuria or hematuria [] Musculoskeletal: Denies back pain or joint pain [] Integument: Denies rash or skin lesions [] Neurologic: Denies headache, focal weakness or sensory changes [] Endocrine: Denies polyuria or polydipsia [] All other systems were reviewed and found to be within normal limits, except as documented in this note. Family History Family History Noncontributory Current Medications Current Medications See nursing for home meds Allergies Allergies Allergies Coded Allergies Type Severity Reaction Last Updated Verified Sulfa (Sulfonamide Antibiotics) Allergy Intermediate 04/15/17 Yes prednisone Allergy Intermediate 02/06/19 Yes Physical Exam Physical Exam Constitutional: Moderate acute distress, non-toxic appearance. [] HENT: Normocephalic, atraumatic, bilateral external ears normal, oropharynx moist, no oral exudates, nose swollen turbinates . Eyes: PERRLA, EOMI, conjunctiva normal, no discharge. [] Neck: Normal range of motion, no tenderness, supple, no stridor. [] Cardiovascular:Heart rate regular rhythm, no murmur [] Lungs & Thorax: Bilateral breath sounds clear to auscultation [] Abdomen: Bowel sounds hyperactive,, soft, left flank and lower abdomen tenderness, no masses, no pulsatile masses. No vaginal discharge. Old surgery scars. Mild rebound to left flank Skin: Warm, dry, no erythema, no rash. [] Back: No tenderness, mild left CVA tenderness. [] Extremities: No tenderness, no cyanosis, no clubbing, ROM intact, no edema. [] No psoas sign Neurologic: Alert and oriented X 3, normal motor function, normal sensory function, no focal deficits noted. [ Psychologic: Affect normal, judgement normal, mood normal. [] EKG EKG [] Radiology/Procedures Radiology/Procedures [][address] [address] IMAGING REPORT Signed PATIENT: ISAURO ELAINE ACCOUNT: [id number] : 1995 LOCATION: ER AGE: 24 SEX: F EXAM STATUS: REG ER ORD. PHYSICIAN: JUANA CRUZ MD REASON: hematuria, ABD PAIN, OMNI 300, 75ml PROCEDURE: CT ABD PELV W/ IV CONTRST ONLY Exam: CT abdomen and pelvis with contrast INDICATION: Hematuria TECHNIQUE: Sequential axial images through the abdomen and pelvis obtained following the administration of 75 mL of Omni 300 IV contrast. Sagittal and coronal reformatted images were reconstructed from the axial data and reviewed. Comparisons: None FINDINGS: Heart size is normal. No pericardial effusion. Visualized lung bases are clear. No pleural effusion. Liver, spleen, pancreas, and adrenals are unremarkable. Gallbladder is absent. No perinephric inflammation or hydronephrosis. No renal or ureteral calculi are identified. Bladder is decompressed not well evaluated. Uterus is not enlarged. No abnormal adnexal mass. Large and small bowel are unremarkable. Appendix is normal. No free intra-abdominal air or fluid. No obstruction. Abdominal aorta has a normal course and caliber. Abdominal vasculature is patent. No enlarged intra-abdominal lymph nodes are identified. No suspicious osseous lesions or acute fractures. IMPRESSION: No acute process identified within the abdomen or pelvis. Exposure: One or more of the following in the visualized dose reduction techniques were utilized for this examination: 1. Automated exposure control 2. Adjustment of the MA and/or KV according to patient size 3. Use of iterative of reconstructive technique Electronically signed by: Wilber Brannon MD (10/31/2019 8:39 PM) [id number] DICTATED AND SIGNED BY: WILBER BRANNON MD DATE: 10/31/192038 CC: JUANA CRUZ MD; JOEL YU PAC ~ Course & Med Decision Making Course & Med Decision Making Pertinent Labs and Imaging studies reviewed. (See chart for details) She stay on a clear fluid diet for the next 48 hours. Push fluids. Take Tylenol and ibuprofen for discomfort. May take Zofran 8 mg up 4 times a day for nausea and vomiting. Patient consider colonoscopy. Patient offered a oral contrast CT. Patient declines further work up at this time. Impression: 1. Abdomen pain. 2. History of eosinophilic colitis 3. Hematuria 4. Past history of renal stones [] Dragon Disclaimer Dragon Disclaimer This electronic medical record was generated, in whole or in part, using a voice recognition dictation system. Departure Departure: Disposition: 01 HOME/RESIDENCE PRIOR TO ADM Condition: STABLE Referrals: JOEL YU PAC (PCP) Scripts Hydrocodone/Ibuprofen (HYDROCODONE-IBUPROFEN 7.5-200 ) 1 Each Tablet 1 TAB PO PRN Q6HRS PRN for PAIN, #30 TAB 0 Refills Prov: JUANA CRUZ MD 10/31/19 Ondansetron Hcl (ZOFRAN) 8 Mg Tablet 8 MG PO QIDPRN PRN for active nausea and vomitng, #30 BOTTLE Prov: JUANA CRUZ MD 10/31/19 Dragon Disclaimer This chart was dictated in whole or in part using Voice Recognition software in a busy, high-work load, and often noisy Emergency Department environment. It may contain unintended and wholly unrecognized errors or omissions. JUANA CRUZ MD Oct 31, 2019 17:46
[2019-10-31 18:25] LABS: BARBITURATES NEG (NEG); BENZODIAZEPINES NEG (NEG); CANNABINOIDS NEG (NEG); COCAINE NEG (NEG); METHADONE NEG (NEG); OPIATES NEG (NEG); PHENCYCLIDINE NEG (NEG)
[2019-10-31 18:26] LABS: AMPHETAMINE/METHAMPHETAMINE NEG (NEG)
[2019-10-31 18:35] LABS: BACTERIA,URINE FEW /HPF (0-FEW); BILIRUBIN,URINE NEG (NEG); CLARITY,URINE CLEAR; COLOR,URINE YELLOW; GLUCOSE,URINE NEG (NEG); NITRITE,URINE NEG (NEG); SQUAMOUS EPITHELIAL CELL,UR OCC /LPF; UROBILINOGEN,URINE 0.2 mg/dL (0.2 mg/dL)
[2019-10-31] MEDS ORDERED: IV RINGERS SOLUTION,LACTATED 1,000 ML IV SCH (18:42)
[2019-10-31] MEDS ORDERED: KETOROLAC 30 MG/ML VIAL. IVP ONE (18:45)
[2019-10-31] MEDS ORDERED: FAMOTIDINE 20 MG/2 ML VIAL IVP ONE (18:45)
[2019-10-31] MEDS ORDERED: ONDANSETRON PF 4 MG/2 ML VIAL. IVP ONE (18:45)
[2019-10-31] MEDS ORDERED: IOHEXOL 300 MG/ML 75 ML VIAL. IV ONE (19:15)
[2019-10-31] MEDS ORDERED: CONTRAST GIVEN MC PRN (19:30)
[2019-10-31 20:15] LABS: BASO % 1 % (0-3); EOS # 0.1 x10^3/uL (0.0-0.7); EOS % 1 % (0-3); HEMATOCRIT 40.5 % (36.0-47.0); HEMOGLOBIN 13.6 g/dL (12.0-15.5); LYMPH % 45 % (24-48); MEAN CORPUSCULAR HEMOGLOBIN 29 pg (25-35); MEAN CORPUSCULAR HGB CONC 34 g/dL (31-37); MEAN CORPUSCULAR VOLUME 87 fL (79-100); MONO # 0.6 x10^3/uL (0.0-1.1); MONO % 9 % (0-9); NEUT % 45 % (31-73); PLATELET COUNT 210 x10^3/uL (140-400); RED BLOOD COUNT 4.67 x10^6/uL (3.50-5.40); RED CELL DISTRIBUTION WIDTH 12.5 % (11.5-14.5); WHITE BLOOD COUNT 6.7 x10^3/uL (4.0-11.0)
[2019-10-31 20:19] LABS: CALCIUM 8.7 mg/dL (8.5-10.1); CREATININE 0.8 mg/dL (0.6-1.0); GFR 88.9; POTASSIUM 3.3 mmol/L (3.5-5.1)
[2019-10-31 20:26] LABS: ALBUMIN 3.8 g/dL (3.4-5.0); DIRECT BILIRUBIN 0.1 mg/dL (0.0-0.2); TOTAL BILIRUBIN 0.4 mg/dL (0.2-1.0); TOTAL PROTEIN 7.4 g/dL (6.4-8.2)
--- NOTE | 2019-10-31 20:41 | RAD ---
Exam: CT abdomen and pelvis with contrast INDICATION: Hematuria TECHNIQUE: Sequential axial images through the abdomen and pelvis obtained following the administration of 75 mL of Omni 300 IV contrast. Sagittal and coronal reformatted images were reconstructed from the axial data and reviewed. Comparisons: None FINDINGS: Heart size is normal. No pericardial effusion. Visualized lung bases are clear. No pleural effusion. Liver, spleen, pancreas, and adrenals are unremarkable. Gallbladder is absent. No perinephric inflammation or hydronephrosis. No renal or ureteral calculi are identified. Bladder is decompressed not well evaluated. Uterus is not enlarged. No abnormal adnexal mass. Large and small bowel are unremarkable. Appendix is normal. No free intra-abdominal air or fluid. No obstruction. Abdominal aorta has a normal course and caliber. Abdominal vasculature is patent. No enlarged intra-abdominal lymph nodes are identified. No suspicious osseous lesions or acute fractures. IMPRESSION: No acute process identified within the abdomen or pelvis. Exposure: One or more of the following in the visualized dose reduction techniques were utilized for this examination: 1. Automated exposure control 2. Adjustment of the MA and/or KV according to patient size 3. Use of iterative of reconstructive technique Electronically signed by: Wilber Michel MD (10/31/2019 8:39 PM) [id number]
[2019-10-31] MEDS ORDERED: ONDA8TAB9 PO (22:45)
[2019-10-31] MEDS ORDERED: HYDR-1179 PO (22:45)
[2019-10-31] MEDS ORDERED: methylPREDNISolone SOD SUCC PF 125 MG/2 ML VIAL. IV ONE (23:00)
[2019-10-31 23:15] VITALS: BP 119/71
--- NOTE | 2019-11-01 07:21 | RAD ---
PROCEDURE: ACUTE ABDOMEN SERIES STUDY DATE: 10/31/2019 CLINICAL INDICATION / HISTORY: Abdominal pain. TECHNIQUE: Upright PA chest, supine and upright films of the abdomen were obtained. COMPARISON: None FINDINGS: AP view the chest reveals the lungs to be clear. Cardiac and mediastinal silhouette are unremarkable. No free air is identified below the diaphragms. Supine and upright views of the abdomen reveal no dilated loops of bowel or air-fluid levels. Cholecystectomy clips are present. No organomegaly is present. No destructive osseous lesions. IMPRESSION: No radiographic evidence for bowel obstruction. Electronically signed by: Lesly Seth MD (11/01/2019 7:18 AM) [id number]
== END 2019-10-31 23:20 | disposition home or self-care (01) ==
LOC: ER 17:21
DX: R31.9 Hematuria, unspecified (principal); J45.909 Unspecified asthma, uncomplicated; K21.9 Gastro-esophageal reflux disease without esophagitis; E78.5 Hyperlipidemia, unspecified; Z87.442 Personal history of urinary calculi; Z90.49 Acquired absence of other specified parts of digestive tract; Z88.2 Allergy status to sulfonamides; Z88.8 Allergy status to other drugs, medicaments and biological substances
CPT/HCPCS: 36415; 74022; 74177; 80048; 80076; 80307; 81001; 81025; 85025; 96374; 96375; 99285; J1885; J2405; J2930; J3490; J7120; Q9967

== ENCOUNTER → 2020-01-03 | Outpatient (CLI) | payer BC ==
[~2020-01-03] MED LIST changes: +ALBU2.5V8 IH; +AZIT250T PO; +BUSP10TA PO; +CETI10TA74 PO; +DIPH25CA58 PO; +FLUT10.6 IH; +HYDR-1179 PO; +L.AC1CAP6 PO; +MAGN250T10 PO; +MELA10CA PO; +MONT10TA80 PO; +ONDA4TAB12 PO; +ONDA4TAB7 PO; +ONDA8TAB9 PO; +POTA10TA17 PO; +PRED15SO49 PO; +PREN1TAB58 PO; +PSYL0.5215 PO; +SUMA100T3 PO
--- NOTE | 2020-01-03 09:54 | RAD ---
SMALL BOWEL SERIES . Reason for study: Right lower quadrant abdominal pain. Comparison studies: CT abdomen pelvis 10/31/2019. Technique: Preliminary military pay clerk film of the abdomen was obtained. Then following ingestion of oral barium, serial images of the abdomen were obtained to assess progress of contrast throughout the small bowel. Findings: The military pay clerk image demonstrates a nonobstructive bowel gas pattern. There are no distended small bowel loops. No strictures are seen. The small bowel fold pattern is unremarkable. Transit time was normal at 40 minutes (normal <120 minutes.) IMPRESSION: Unremarkable small bowel series. Electronically signed by: Christopher Chaparro MD (01/03/2020 9:51 AM) [id number]
== END ==
LOC: RAD 08:09
PROVIDERS: ATTEND Internal Medicine Gastroenterology
DX: R10.32 Left lower quadrant pain (principal); R19.7 Diarrhea, unspecified
CPT/HCPCS: 74250

== ENCOUNTER → 2020-01-12 | Outpatient (CLI) | payer BC ==
--- NOTE | 2020-01-12 14:39 | RAD ---
NUCLEAR MEDICINE MECKEL'S SCAN Clinical indications: Rectal bleeding and abdominal pain COMPARISON: No previous nuclear medicine scan available. CT study abdomen and pelvis dated October 31, 2019. TECHNIQUE: After IV infusion of 10.2 mCi of technetium 99m pertechnetate, anterior planar images of the abdomen were performed up to 40 minutes. FINDINGS: No abnormal radiotracer uptake is seen. Specifically, no gastric functioning ectopic tissue indicative of a Meckel's diverticulum is seen. IMPRESSION: Negative Meckel's scan. Electronically signed by: Tristin Riley MD (01/12/2020 2:36 PM) [id number]
== END | disposition home or self-care (01) ==
LOC: NM 12:55
PROVIDERS: ATTEND Internal Medicine Gastroenterology
DX: K62.5 Hemorrhage of anus and rectum (principal); R10.32 Left lower quadrant pain; R19.7 Diarrhea, unspecified
CPT/HCPCS: 78290; 96374; A9512

== ENCOUNTER 2020-03-22 10:06 | Emergency (ER) | payer BC ==
[~2020-03-22] VITALS: Ht 162.6 cm; Wt 74.3 kg
[~2020-03-22 10:06] MED LIST changes: -ALBU2.5V8 IH; -AZIT250T PO; -BUSP10TA PO; -CETI10TA74 PO; -DIPH25CA58 PO; -FLUT10.6 IH; -L.AC1CAP6 PO; -MAGN250T10 PO; -MELA10CA PO; -MONT10TA80 PO; -ONDA4TAB12 PO; -ONDA4TAB7 PO; -POTA10TA17 PO; -PRED15SO49 PO; -PREN1TAB58 PO; -PSYL0.5215 PO; -SUMA100T3 PO
[2020-03-22] MEDS ORDERED: AZIT250T PO (10:26)
--- NOTE | 2020-03-22 10:27 | PHYS DOC ---
Past History Past Medical History: Asthma, Depression, GERD, High Cholesterol, Other Additional Past Medical Histor: Vitamin D defeciency, iron defeciency, Emery- Nicolas, colitis esinophilic Past Surgical History: Cholecystectomy Smoking: Non-smoker Alcohol Use: Occasionally Drug Use: None General Adult EDM: Chief Complaint: HEADACHE HPI: HPI: Patient is a 25-year-old female, who presents to the emergency department stating "I think I have a sinus infection". She states that she went to an urgent care about 10 days ago for nasal congestion and sinus pressure, and was diagnosed clinically with a sinus infection but was not given any antibiotics. Her symptoms have persisted and slightly worsened over the past few days. She reports her sinus infection is causing a generalized headache, symptoms that she has had in the past with prior sinus infections. She has had a nonproductive cough. She has not had any fevers or chills, vision changes, and this current headache is not different than prior headaches that she has had. She has not had any other symptoms, denies shortness of breath. There are no alleviating or exacerbating factors to her symptoms. Review of Systems: Review of Systems: Constitutional: Denies fever or chills Eyes: Denies change in visual acuity HENT: Denies otalgia or sore throat. Reports sinus congestion and pressure. Respiratory: Denies productive cough or shortness of breath Cardiovascular: Denies chest pain or edema GI: Denies abdominal pain, nausea, vomiting, bloody stools or diarrhea : Denies dysuria, denies Musculoskeletal: Denies back pain or joint pain Neurologic: Denies focal weakness or sensory changes Lymphatic: Denies swollen glands Heart Score: Risk Factors: Risk Factors: DM, Current or recent (<one month) smoker, HTN, HLP, family history of CAD, obesity. Risk Scores: Score 0 - 3: 2.5% MACE over next 6 weeks - Discharge Home Score 4 - 6: 20.3% MACE over next 6 weeks - Admit for Clinical Observation Score 7 - 10: 72.7% MACE over next 6 weeks - Early Invasive Strategies Allergies: Allergies: Allergies Coded Allergies Type Severity Reaction Last Updated Verified Sulfa (Sulfonamide Antibiotics) Allergy Intermediate 04/15/17 Yes prednisone Allergy Intermediate 02/06/19 Yes Physical Exam: PE: PHYSICAL EXAM: CONSTITUTIONAL: Well developed, well nourished HEAD: normocephalic, atraumatic EENT: PERRL, EOMI. Conjunctivae normal color, sclerae non-icteric; moist mucous membranes. There is tenderness to palpation to the paranasal sinuses on the left greater than right. NECK: Supple, non-tender; no meningismus. LUNGS: Lungs CTA, breathing even and unlabored. Normal air movement. HEART: Regular rate and rhythm, no murmur CHEST: No deformity; non-tender ABDOMEN: The abdomen is soft, and non-tender, no masses or bruits. EXTREM: Normal ROM; no deformity, no calf tenderness. Normal pulses palpable in all extremities. There is no pedal edema. SKIN: No rash; no diaphoresis NEURO: Alert; normal speech and cognition; CN's grossly intact; strength grossly intact without focal deficit. BACK: No CVA TTP. Current Patient Data: Vital Signs: Vital Signs Date Time Temp Pulse Resp B/P (MAP) Pulse Ox O2 Delivery O2 Flow Rate FiO2 03/22/20 10:13 98.1 100 16 135/76 (95) 97 Room Air EKG: EKG: [] Radiology/Procedures: Radiology/Procedures: [] Course & Med Decision Making: Course & Med Decision Making Patient remains stable. I discussed diagnosis, home care plan, the need for close follow-up, and return precautions. [place]ano Disclaimer: Urbano Disclaimer: This electronic medical record was generated, in whole or in part, using a voice recognition dictation system. Departure Departure: Impression: Primary Impression: Sinusitis Disposition: 01 HOME/RESIDENCE PRIOR TO ADM Condition: STABLE Referrals: JOEL YU PAC (PCP) Patient Instructions: Sinusitis Scripts Azithromycin (ZITHROMAX) 250 Mg Tablet 1 PKG PO UD for -, #6 TAB Prov: VIKAS QUEZADA MD 03/22/20 Justification of Admission: Justification of Admission: Justification of Admission Dx: N/A VIKAS QUEZADA MD Mar 22, 2020 10:27
== END 2020-03-22 10:30 | disposition home or self-care (01) ==
LOC: ER 10:06
DX: J32.9 Chronic sinusitis, unspecified (principal); J45.909 Unspecified asthma, uncomplicated; K21.9 Gastro-esophageal reflux disease without esophagitis; E78.00 Pure hypercholesterolemia, unspecified; Z88.2 Allergy status to sulfonamides; Z88.8 Allergy status to other drugs, medicaments and biological substances
CPT/HCPCS: 99283

== ENCOUNTER 2020-04-05 20:12 | Emergency (ER) | payer BC ==
[~2020-04-05] VITALS: Ht 162.6 cm; Wt 70.0 kg
[~2020-04-05 20:12] MED LIST changes: +AZIT250T PO
--- NOTE | 2020-04-05 20:19 | PHYS DOC ---
Past History Past Medical History: Asthma, Depression, GERD, High Cholesterol, Migraines, Sinusitis, Other Additional Past Medical Histor: Vitamin D defeciency, iron defeciency, Emery- Nicolas, colitis esinophilic, Past Medical History seasonal allergies Past Surgical History: Appendectomy, Cholecystectomy Smoking: Non-smoker Alcohol Use: Occasionally Drug Use: None General Adult EDM: Chief Complaint: HEADACHE HPI: HPI: " It feels like I got a sinus headache... I ve had it now for over 10 days.. I did a course Azithromax... but I am no better..." Patient is a 25 year old female who presents with above hx and complaints of headache. Patient describes headache as one of her sinus headaches. However patient did complete a course of Zithromax with no improvement. Patient denies any travel outside the [place] area. Patient denies any specific ill contacts. Patient denies any history of immunosuppression. Patient denies any history of trauma. Patient denies any specific history of fever or chills. Patient localizes pain in her frontal area and up over her scalp. Nothing seems to make the pain better. Patient pain is been present consistently off and on for the last 10 days. Review of Systems: Review of Systems: Constitutional: Denies fever or chills Eyes: Denies change in visual acuity HENT: Complaints of nasal congestion Respiratory: Denies cough or shortness of breath Cardiovascular: Denies chest pain or edema GI: Denies abdominal pain, nausea, vomiting, bloody stools or diarrhea : Denies dysuria Musculoskeletal: Denies back pain or joint pain Integument: Denies rash Neurologic: Complaints of headache, denies focal weakness or sensory changes Endocrine: Denies polyuria or polydipsia Lymphatic: Denies swollen glands Psychiatric: Denies depression or anxiety Heart Score: Risk Factors: Risk Factors: DM, Current or recent (<one month) smoker, HTN, HLP, family history of CAD, obesity. Risk Scores: Score 0 - 3: 2.5% MACE over next 6 weeks - Discharge Home Score 4 - 6: 20.3% MACE over next 6 weeks - Admit for Clinical Observation Score 7 - 10: 72.7% MACE over next 6 weeks - Early Invasive Strategies Family History: Family History: Noncontributory Current Medications: Current Meds: See nursing for home meds Allergies: Allergies: Allergies Coded Allergies Type Severity Reaction Last Updated Verified Sulfa (Sulfonamide Antibiotics) Allergy Intermediate 04/15/17 Yes prednisone Allergy Intermediate 02/06/19 Yes Physical Exam: PE: Constitutional: Well developed, well nourished, no acute distress, non-toxic appearance. [] HENT: Normocephalic, atraumatic, bilateral external ears normal, oropharynx moist, postnasal drainage, no oral exudates, nose mild injection of turbinates with clear rhinorrhea.. Localizes headache over frontal and scalp. Eyes: PERRLA, EOMI, conjunctiva normal, no discharge. Glasses Neck: Normal range of motion, no tenderness, supple, no stridor. [] Cardiovascular:Heart rate regular rhythm, no murmur [] Lungs & Thorax: Bilateral breath sounds equal apex on auscultation [] Abdomen: Bowel sounds normal, soft, no tenderness, no masses, no pulsatile masses. [] Skin: Warm, dry, no erythema, no rash. [] Back: No tenderness, no CVA tenderness. [] Extremities: No tenderness, no cyanosis, no clubbing, ROM intact, no edema. [] Neurologic: Alert and oriented X 3, normal motor function, normal sensory function, no focal deficits noted. [] DTRs +2 patellar and brachial. No drift. 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 Ambulatory without problem Psychologic: Affect anxious, judgement normal, mood normal. [] EKG: EKG: [] Radiology/Procedures: Radiology/Procedures: [][address] [place] [id number] IMAGING REPORT Signed PATIENT: ISAURO ELAINE ACCOUNT: [id number] : 1995 LOCATION: ER AGE: 25 SEX: F EXAM STATUS: REG ER ORD. PHYSICIAN: JUANA CRUZ MD REASON: facial pain, txed previously for sinusitis, no improvement. PROCEDURE: CT HEAD AND MAXILLOFACIAL WO CT Head W/O Contrast: History: Reason: facial pain, txed previously for sinusitis, no improvement. / Spl. Instructions: / History: Comparison: none Axial images were obtained without contrast. The funes and white matter appears normal and symmetrical for the patients age. There is no mass effect, extraaxial fluid collections or hydrocephalus. There is no gross bleed. There is no focal loss of funes-white matter distinction to suggest acute ischemia, i.e. stroke. Impression: No acute findings. End impression CT maxillofacial without contrast History: Facial pain Axial helical images of the face were obtained without contrast. Axial and coronal reconstruction was performed. FINDINGS: There is a polyp versus mucous retention cysts in the floor of the right maxillary sinus. The nasal septum is moderately deviated to the right. The ostiomeatal complexes are narrow but patent. The paranasal sinuses are clear. The visualized osseous structures appear intact. The orbits appear normal. Impression: No acute findings. PQRS Compliance Statement: One or more of the following individualized dose reduction techniques were utilized for this examination: 1. Automated exposure control 2. Adjustment of the mA and/or kV according to patient size 3. Use of iterative reconstruction technique Electronically signed by: Luisana Delarosa III, MD (04/05/2020 9:21 PM) [facility] DICTATED AND SIGNED BY: LUISANA DELAROSA III, MD DATE: 04/05/202120 CC: JUANA CRUZ MD; JOEL YU PAC ~ Course & Med Decision Making: Course & Med Decision Making Pertinent Labs and Imaging studies reviewed. (See chart for details) Patient to follow-up with primary care. Patient to take Tylenol and ibuprofen for pain. If marked pain may do a trial of Imitrex 100 in AM . Take no more 200 mg in 24 hrs. Review ED work-up with primary. Reconsider your decision not to get a spinal tap. Discussed benefits and complications of spinal tap. Patient exhibits UCAR capacity. Patient take [id number] sinus and allergy meds as needed. (Claritin, Benadryl etc.) The patient may take Zofran 8 mg up to 4 times a day for nausea and headache symptoms. Impression: 1. Headache 2. Viral Syndrome? [] Dragon Disclaimer: [place]ano Disclaimer: This electronic medical record was generated, in whole or in part, using a voice recognition dictation system. Departure Departure: Disposition: 01 HOME/RESIDENCE PRIOR TO ADM Condition: STABLE Referrals: JOEL YU PAC (PCP) Scripts Ondansetron Hcl (ZOFRAN) 8 Mg Tablet 8 MG PO QIDPRN PRN for nausea and headache, #30 BOTTLE Prov: JUANA CRUZ MD 04/05/20 Sumatriptan Succinate (IMITREX) 100 Mg Tablet 100 MG PO 1X for migraine headache, #10 TAB Prov: JUANA CRUZ MD 04/05/20 Justification of Admission: Justification of Admission: Justification of Admission Dx: N/A Dragon Disclaimer This chart was dictated in whole or in part using Voice Recognition software in a busy, high-work load, and often noisy Emergency Department environment. It may contain unintended and wholly unrecognized errors or omissions. Dragon Disclaimer This chart was dictated in whole or in part using Voice Recognition software in a busy, high-work load, and often noisy Emergency Department environment. It may contain unintended and wholly unrecognized errors or omissions. JUANA CRUZ MD Apr 05, 2020 20:19
[2020-04-05] MEDS ORDERED: IV RINGERS SOLUTION,LACTATED 1,000 ML IV SCH (20:21)
[2020-04-05 20:52] LABS: BASO % 1 % (0-3); EOS # 0.1 x10^3/uL (0.0-0.7); EOS % 1 % (0-3); HEMATOCRIT 39.1 % (36.0-47.0); HEMOGLOBIN 13.4 g/dL (12.0-15.5); LYMPH # 2.7 x10^3/uL (1.0-4.8); LYMPH % 40 % (24-48); MEAN CORPUSCULAR HEMOGLOBIN 30 pg (25-35); MEAN CORPUSCULAR HGB CONC 34 g/dL (31-37); MEAN CORPUSCULAR VOLUME 88 fL (79-100); MONO # 0.5 x10^3/uL (0.0-1.1); MONO % 8 % (0-9); NEUT # 3.4 x10^3uL (1.8-7.7); NEUT % 51 % (31-73); PLATELET COUNT 213 x10^3/uL (140-400); RED BLOOD COUNT 4.47 x10^6/uL (3.50-5.40); RED CELL DISTRIBUTION WIDTH 12.9 % (11.5-14.5); WHITE BLOOD COUNT 6.6 x10^3/uL (4.0-11.0)
[2020-04-05 20:55] LABS: CALCIUM 9.1 mg/dL (8.5-10.1); CREATININE 1.2 mg/dL (0.6-1.0); GFR 55.2; POTASSIUM 3.5 mmol/L (3.5-5.1)
[2020-04-05 21:01] LABS: DIRECT BILIRUBIN 0.1 mg/dL (0.0-0.2); MAGNESIUM 1.9 mg/dL (1.8-2.4); TOTAL BILIRUBIN 0.6 mg/dL (0.2-1.0); TOTAL PROTEIN 7.1 g/dL (6.4-8.2)
--- NOTE | 2020-04-05 21:23 | RAD ---
CT Head W/O Contrast: History: Reason: facial pain, txed previously for sinusitis, no improvement. / Spl. Instructions: / History: Comparison: none Axial images were obtained without contrast. The funes and white matter appears normal and symmetrical for the patients age. There is no mass effect, extraaxial fluid collections or hydrocephalus. There is no gross bleed. There is no focal loss of funes-white matter distinction to suggest acute ischemia, i.e. stroke. Impression: No acute findings. End impression CT maxillofacial without contrast History: Facial pain Axial helical images of the face were obtained without contrast. Axial and coronal reconstruction was performed. FINDINGS: There is a polyp versus mucous retention cysts in the floor of the right maxillary sinus. The nasal septum is moderately deviated to the right. The ostiomeatal complexes are narrow but patent. The paranasal sinuses are clear. The visualized osseous structures appear intact. The orbits appear normal. Impression: No acute findings. PQRS Compliance Statement: One or more of the following individualized dose reduction techniques were utilized for this examination: 1. Automated exposure control 2. Adjustment of the mA and/or kV according to patient size 3. Use of iterative reconstruction technique Electronically signed by: Aquilino Valdez III, MD (04/05/2020 9:21 PM) [facility]
[2020-04-05 21:25] LABS: BARBITURATES NEG (NEG); BENZODIAZEPINES NEG (NEG); CANNABINOIDS NEG (NEG); COCAINE NEG (NEG); METHADONE NEG (NEG); OPIATES NEG (NEG); PHENCYCLIDINE NEG (NEG)
[2020-04-05 21:29] LABS: AMPHETAMINE/METHAMPHETAMINE NEG (NEG)
[2020-04-05 21:32] LABS: BACTERIA,URINE FEW /HPF (0-FEW); BILIRUBIN,URINE NEG (NEG); CLARITY,URINE CLEAR; COLOR,URINE YELLOW; GLUCOSE,URINE NEG (NEG); NITRITE,URINE NEG (NEG); RBC,URINE 0 /HPF (0-2); SQUAMOUS EPITHELIAL CELL,UR FEW /LPF; UROBILINOGEN,URINE 0.2 mg/dL (0.2 mg/dL); WBC,URINE OCC /HPF (0-4)
[2020-04-05] MEDS ORDERED: diphenhydrAMINE 50 MG/ML VIAL IVP ONE (21:45)
[2020-04-05] MEDS ORDERED: PROCHLORPERAZINE 10 MG/2 ML VIAL. IM ONE (21:45)
[2020-04-05] MEDS ORDERED: SUMAtriptan SUCC 6 MG/0.5 ML VIAL SQ ONE (21:45)
[2020-04-05 21:48] VITALS: BP 120/63
[2020-04-05] MEDS ORDERED: SUMA100T3 PO (22:44)
[2020-04-05] MEDS ORDERED: ONDA8TAB9 PO (22:44)
== END 2020-04-05 22:55 | disposition home or self-care (01) ==
LOC: ER 20:12
DX: G43.909 Migraine, unspecified, not intractable, without status migrainosus (principal); J45.909 Unspecified asthma, uncomplicated; K21.9 Gastro-esophageal reflux disease without esophagitis; E78.00 Pure hypercholesterolemia, unspecified; Z88.2 Allergy status to sulfonamides; Z88.8 Allergy status to other drugs, medicaments and biological substances
CPT/HCPCS: 36415; 70450; 70486; 80048; 80076; 80307; 81001; 82550; 83735; 84443; 84484; 85025; 85610; 85730; 86140; 96372; 96374; 99285; J0780; J1200; J3030; J7120

== ENCOUNTER 2020-06-18 18:30 | Emergency (ER) | payer BC ==
[~2020-06-18] VITALS: Ht 162.6 cm; Wt 70.0 kg
[~2020-06-18 18:30] MED LIST changes: +SUMA100T3 PO
--- NOTE | 2020-06-18 19:12 | PHYS DOC ---
Past History Past Medical History: Anxiety, Asthma, Depression, GERD, High Cholesterol, Migraines, Sinusitis, Other Additional Past Medical Histor: Vitamin D defeciency, iron defeciency, Emery-Nicolas, colitis esinophilic, Past Surgical History: Appendectomy, Cholecystectomy Additional Past Surgical Histo: hernia repair Smoking: Non-smoker Alcohol Use: Occasionally Drug Use: None General Adult EDM: Chief Complaint: SORE THROAT HPI: HPI: '.. I ve got a really sore throat.. and longer I had it tonight.. the more anxious I became.." Patient is a 25 year old female who presents with above hx and complaints of sore throat. Patient denies any fever or chills. No recent travel outside the [facility]. No specific ill contacts. Patient has had strep pharyngitis in the past. Does have a history of anxiety disorder and panic attacks. Follows with [facility] for care. Review of Systems: Review of Systems: Constitutional: Denies fever or chills Eyes: Denies change in visual acuity HENT: Complains of sore throat Respiratory: Denies cough or shortness of breath Cardiovascular: Denies chest pain or edema GI: Denies abdominal pain, nausea, vomiting, bloody stools or diarrhea : Denies dysuria Musculoskeletal: Denies back pain or joint pain Integument: Denies rash Neurologic: Denies headache, focal weakness or sensory changes Endocrine: Denies polyuria or polydipsia Lymphatic: Denies swollen glands Psychiatric: Complains of anxiety Heart Score: Risk Factors: Risk Factors: DM, Current or recent (<one month) smoker, HTN, HLP, family history of CAD, obesity. Risk Scores: Score 0 - 3: 2.5% MACE over next 6 weeks - Discharge Home Score 4 - 6: 20.3% MACE over next 6 weeks - Admit for Clinical Observation Score 7 - 10: 72.7% MACE over next 6 weeks - Early Invasive Strategies Family History: Family History: Noncontributory Current Medications: Current Meds: See nursing for home meds Allergies: Allergies: Allergies Coded Allergies Type Severity Reaction Last Updated Verified Sulfa (Sulfonamide Antibiotics) Allergy Intermediate 04/15/17 Yes prednisone Allergy Intermediate 02/06/19 Yes Physical Exam: PE: Constitutional: no acute distress, non-toxic appearance. [] HENT: Normocephalic, atraumatic, bilateral external ears normal, oropharynx moist mild pharyngeal injection., no oral exudates, nose normal. No adenopathy Eyes: PERRLA, EOMI, conjunctiva normal, no discharge. [] Neck: Normal range of motion, no tenderness, supple, no stridor. No adenopathy Cardiovascular:Heart rate regular rhythm, no murmur [] Lungs & Thorax: Bilateral breath sounds equal apex on auscultation [] Abdomen: Bowel sounds normal, soft, no tenderness, no masses, no pulsatile masses. Old surgery scars. Skin: Warm, dry, no erythema, no rash. [] Back: No tenderness, no CVA tenderness. [] Extremities: No tenderness, no cyanosis, no clubbing, ROM intact, no edema. [] Neurologic: Alert and oriented X 3, normal motor function, normal sensory function, no focal deficits noted. [] Psychologic: Affect very anxious, judgement normal, mood normal. [] Current Patient Data: Vital Signs: Vital Signs Date Time Temp Pulse Resp B/P (MAP) Pulse Ox O2 Delivery O2 Flow Rate FiO2 06/18/20 18:30 98.3 111 16 122/86 (98) 98 Room Air EKG: EKG: [] Radiology/Procedures: Radiology/Procedures: [] Course & Med Decision Making: Course & Med Decision Making Pertinent Labs and Imaging studies reviewed. (See chart for details) Patient to gargle with Listerine 4 times a day or warm salt water. Patient take Tylenol and ibuprofen for pain. Patient to follow-up with primary care. Patient consider use of Benadryl 25 to 50 mg up to 4 times a day. Patient follow-up with primary care. Patient return if any concerns. Impression; 1. Viral pharyngitis 2. Anxiety [] Dragon Disclaimer: Dragon Disclaimer: This electronic medical record was generated, in whole or in part, using a voice recognition dictation system. Departure Departure: Disposition: 01 HOME/RESIDENCE PRIOR TO ADM Condition: STABLE Referrals: JOEL YU PAC (PCP) [place]ano Disclaimer This chart was dictated in whole or in part using Voice Recognition software in a busy, high-work load, and often noisy Emergency Department environment. It may contain unintended and wholly unrecognized errors or omissions. JUANA CRUZ MD Jun 18, 2020 19:12
[2020-06-18 19:57] LABS: INFLUENZA A PATIENT NEGATIVE (NEGATIVE); INFLUENZA B PATIENT NEGATIVE (NEGATIVE)
[2020-06-18] MEDS ORDERED: LORazepam 1 MG TABLET PO ONE (20:15)
[2020-06-18 20:20] VITALS: BP 118/77
== END 2020-06-18 20:20 | disposition home or self-care (01) ==
LOC: ER 18:30
DX: J02.8 Acute pharyngitis due to other specified organisms (principal); B97.89 Other viral agents as the cause of diseases classified elsewhere; F41.9 Anxiety disorder, unspecified; J45.909 Unspecified asthma, uncomplicated; K21.9 Gastro-esophageal reflux disease without esophagitis; E78.00 Pure hypercholesterolemia, unspecified; G43.909 Migraine, unspecified, not intractable, without status migrainosus; Z88.2 Allergy status to sulfonamides; Z88.8 Allergy status to other drugs, medicaments and biological substances
CPT/HCPCS: 87070; 87804; 87880; 99283

== ENCOUNTER 2020-06-20 11:01 | Emergency (ER) | payer BC ==
[~2020-06-20] VITALS: Ht 162.6 cm; Wt 70.4 kg
[2020-06-20] MEDS ORDERED: IPRATRPIUM/ALBUTEROL 0.5/2.5MG 3 ML NEBU. NEB ONE ×3 (11:45→12:15)
[2020-06-20] MEDS ORDERED: DEXAMETHASONE SOD PHOS 10 MG/ML VIAL. IM ONE (11:45)
--- NOTE | 2020-06-20 11:46 | RAD ---
AP chest. HISTORY: Dyspnea AP view was taken of the chest. There is no pneumothorax or pleural effusion. Lungs are free of infiltrates. Heart is normal in size. There is mild scoliosis. IMPRESSION: 1. No acute infiltrates. Electronically signed by: Danny Landeros MD (06/20/2020 11:44 AM) [id number]
[2020-06-20 12:09] VITALS: BP 126/70
--- NOTE | 2020-06-20 12:09 | PHYS DOC ---
Past History Past Medical History: Anxiety, Asthma, Depression, GERD, High Cholesterol, Migraines, Sinusitis, Other Additional Past Medical Histor: Vitamin D defeciency, iron defeciency, Emery-Nicolas, colitis esinophilic, Past Surgical History: Appendectomy, Cholecystectomy Additional Past Surgical Histo: hernia repair Smoking: Non-smoker Alcohol Use: Occasionally Drug Use: None General Adult EDM: Chief Complaint: ASTHMA HPI: HPI: 25 yo F PMH asthma and seasonal allergies, presents to the ED with c/o dry cough, shortness of air/wheezing, rhinorrhea, sinus pressure and itchy watery eyes stating "I'm allergic to hayfever and have been outside too much." States she seen by her primary care physician yesterday and started on cefdinir for bronchitis. Reports she takes magnesium daily for hypomagnesemia. Reports she has been tested twice for COVID both times were negative. Review of Systems: Review of Systems: Constitutional: Denies fever or chills Eyes: Denies change in visual acuity HENT: Denies nasal congestion or sore throat Respiratory: Denies cough or shortness of breath Cardiovascular: Denies chest pain or edema GI: Denies abdominal pain, nausea, vomiting, bloody stools or diarrhea : Denies dysuria Musculoskeletal: Denies back pain or joint pain Integument: Denies rash Neurologic: Denies headache, focal weakness or sensory changes Endocrine: Denies polyuria or polydipsia Lymphatic: Denies swollen glands Psychiatric: Denies depression or anxiety Heart Score: Risk Factors: Risk Factors: DM, Current or recent (<one month) smoker, HTN, HLP, family history of CAD, obesity. Risk Scores: Score 0 - 3: 2.5% MACE over next 6 weeks - Discharge Home Score 4 - 6: 20.3% MACE over next 6 weeks - Admit for Clinical Observation Score 7 - 10: 72.7% MACE over next 6 weeks - Early Invasive Strategies Current Medications: Current Meds: Current Medications Medications (Trade) Dose Ordered Sig/Syd Start Time Stop Time Status Last Admin Dose Admin Albuterol/ Ipratropium (Duoneb) 3 ml 1X ONCE 06/20/20 11:45 06/20/20 11:46 DC 06/20/20 11:58 3 ML Dexamethasone Sodium Phosphate (Decadron) 10 mg 1X ONCE 06/20/20 11:45 06/20/20 11:46 DC 06/20/20 11:58 10 MG Allergies: Allergies: Allergies Coded Allergies Type Severity Reaction Last Updated Verified Sulfa (Sulfonamide Antibiotics) Allergy Intermediate 04/15/17 Yes prednisone Allergy Intermediate 02/06/19 Yes Physical Exam: PE: Constitutional: Well developed, well nourished, no acute distress, non-toxic appearance. [] HENT: Normocephalic, atraumatic, bilateral external ears normal, oropharynx moist, no oral exudates, nose normal. [] Eyes: PERRLA, EOMI, conjunctiva normal, no discharge. [] Neck: Normal range of motion, no tenderness, supple, no stridor. [] Cardiovascular:Heart rate regular rhythm, no murmur [] Lungs & Thorax: Bilateral breath sounds clear to auscultation [] Abdomen: Bowel sounds normal, soft, no tenderness, no masses, no pulsatile masses. [] Skin: Warm, dry, no erythema, no rash. [] Back: No tenderness, no CVA tenderness. [] Extremities: No tenderness, no cyanosis, no clubbing, ROM intact, no edema. [] Neurologic: Alert and oriented X 3, normal motor function, normal sensory function, no focal deficits noted. [] Psychologic: Affect normal, judgement normal, mood normal. [] Current Patient Data: Labs: Laboratory Tests Test 06/20/20 11:32 POC Urine HCG, Qualitative hcg negative (Negative) EKG: EKG: [] Radiology/Procedures: Radiology/Procedures: IMAGING REPORT Signed PATIENT: ISAURO ELAINE ACCOUNT: [id number] : 1995 LOCATION: ER AGE: 25 SEX: F EXAM STATUS: REG ER ORD. PHYSICIAN: RAYNA CALERO DO REASON: dyspnea PROCEDURE: CHEST AP ONLY AP chest. HISTORY: Dyspnea AP view was taken of the chest. There is no pneumothorax or pleural effusion. Lungs are free of infiltrates. Heart is normal in size. There is mild scoliosis. IMPRESSION: 1. No acute infiltrates. Electronically signed by: Danny Landeros MD (06/20/2020 11:44 AM) [id number] DICTATED AND SIGNED BY: DANNY LANDEROS MD DATE: 06/20/20 1144 CC: JOEL YU; RAYNA CALERO DO ~ IMAGING REPORT Signed PATIENT: ISAURO ELAINE ACCOUNT: [id number] : 1995 LOCATION: ER AGE: 25 SEX: F EXAM STATUS: REG ER ORD. PHYSICIAN: RAYNA CALERO DO REASON: dyspnea, elevated DDimer, cough, asthma PROCEDURE: CT ANGIOGRAPHY CHEST Study: CT CHEST WITH CONTRAST - PULMONARY ANGIOGRAM History: Dyspnea. Elevated d-dimer. Cough. Asthma. Pulmonary embolism. Comparison: 02/06/2019 Technique: Helical CT of the chest performed after the administration of 100 cc Omnipaque 240 50 intravenous contrast and timed for angiographic evaluation of the pulmonary arteries per PE protocol. Coronal and sagittal 3D MIP reformations were obtained. One or more of the following individualized dose reduction techniques were utilized for this examination: 1. Automated exposure control 2. Adjustment of the mA and/or kV according to patient size 3. Use of iterative reconstruction technique. Findings: Pulmonary Arteries: No pulmonary embolism is seen throughout the adequately assessed pulmonary arteries. Normal main pulmonary artery caliber. Heart/Systemic Vasculature: Normal aortic caliber. The visualized great vessels are unremarkable. No CT manifestations of right heart strain. Mediastinum: Residual thymic tissue again noted. No adenopathy. Unchanged esophagus. Lungs: No focal airspace consolidation, pleural effusion or pneumothorax. Mild basilar volume loss. Normally aerated central airways. Neck/Axilla/Body Wall: Unchanged thyroid. No axillary adenopathy. Upper Abdomen: No acute process. Bones: Unchanged. Miscellaneous: None. IMPRESSION: No pulmonary embolism or other acute abnormality is seen to account for the patient's symptoms. No relevant change from the 02/06/2019 exam. Electronically signed by: DAVID SELBY MD (06/20/2020 3:51 PM) [id number] DICTATED AND SIGNED BY: DAVID SELBY MD DATE: 06/20/20 1551 CC: JOEL YU; RAYNA CALERO DO ~ Course & Med Decision Making: Course & Med Decision Making Pertinent Labs and Imaging studies reviewed. (See chart for details) Concern for asthma exacerbation in the setting of tachycardia (low 100's -140s after 3 duonebs-suspect adverse effect). CT of the chest shows no evidence of consolidation, pneumothorax or pulmonary embolus. Recommend patient to continue her cefdinir and will prescribe steroids, butyryl and Flovent. Patient reports severe nausea and vomiting with oral prednisone. Given patient's asthma will prescribe Zofran ODT and prednisolone. Patient also with hypokalemia with a potassium of 2.8. Was replaced in the ED and will prescribe oral replacement outpatient. Encourage PMD follow-up in the next 3 to 5 days to have potassium level rechecked. Strict ED return precautions were given for increased work of breathing, worsening shortness of breath or fever or chest pain. Encouraged urgent outpatient follow-up with PMD and pulmonology. Life-threatening processes were considered but are low suspicion at this time, given history and physical exam. Pt was educated on all prescription medications and adverse effects. All patient's questions were answered and pt was stable at time of discharge. Life/limb-threatening differential includes but is not limited to, ACS, dysrhythmia, pneumothorax or hemothorax, pulmonary embolus, pneumonia, bronchoconstriction, pulmonary edema, angioedema, epiglottitis, tracheitis, Davian's angina, [employer], anaphylaxis, angioedema, cardiac tamponade or murmurs, pericarditis, myocarditis, poisoning or toxicity, sepsis or autoimmune/neurologic disease. I spoken with the patient and her caregivers. I explained the patient's condition, diagnoses and treatment plan based on the information available to me at this time. I have answered the patient and her caregiver's questions and addressed any concerns. The patient and her caregivers have a good understanding of patient's diagnosis, condition and treatment plan as can be expected at this point. Vital signs have been stable. Patient's condition is stable and appropriate for discharge from the emergency department. Patient will pursue further outpatient evaluation with primary care physician or other designated or consulting physician as outlined in the discharge ins tructions. The patient and/or caregivers are agreeable to this plan of care and follow-up instructions have been explained in detail. The patient and/or caregivers have received these instructions in written form and have expressed an understanding of the discharge instructions. The patient and/or caregivers are aware that any significant change of condition or worsening of symptoms should prompt immediate return to this or the closest emergency department or call to 911. [place] Disclaimer: Urbano Disclaimer: This electronic medical record was generated, in whole or in part, using a voice recognition dictation system. Departure Departure: Impression: Primary Impression: Asthma exacerbation Additional Impressions: Dyspnea Hypokalemia Disposition: 01 HOME/RESIDENCE PRIOR TO ADM Condition: STABLE Referrals: JOEL YU PAC (PCP) in 3-5 days for reevaluation and recheck of potassium Patient Instructions: Asthma, Adult, Hypokalemia Additional Instructions: FOLLOW UP WITH: [facility] Address: [address] [facility] [address] [place] [address] EMERGENCY DEPARTMENT GENERAL DISCHARGE INSTRUCTIONS Thank you for coming to [facility] (ED) today and trusting us with you care. We trust that you had a positivie experience in our Emergency Department. If you wish to speak to the department management, you may call the director at [phone]. YOUR FOLLOW UP INSTRUCTIONS ARE FOLLOWS: 1. Do you have a private Doctor? If you do not have a private doctor, please ask for a resource list of physicians or clinics that may be able to assist you with follow up care. 2. The Emergency Physician has interpreted your x-rays. The X-Ray specialist will also review them. If there is a change in the findings, you will be notified in 48 hours when at all possible. 3. A lab test or culture has been done, your results will be reviewed and you will be notified if you need a change in treatment. ADDITIONAL INSTRUCTIONS AND INFORMATION: 1. Your care today has been supervised by a physician who is specially trained in emergency care. Many problems require more than one evaluation for a complete diagnosis and treatment. We recommend that you schedule your follow up appointment as recommended to ensure complete treatment of you illness or injury. If you are unable to obtain follow up care and continue to have a problem, or if your condition worsens, we recommend that you return to the ED. 2. We are not able to safely determine your condition over the phone nor are we able to give sound medical advice over the phone. For these safety reasons, if you call for medical advice we will ask you to come to the ED for further evaluation. 3. If you have any questions regarding these discharge instructions please call the ED at [phone]. SAFETY INFORMATION: In the interest of safety, wellness, and injury prevention; we encourage you to wear your sealbelt, if you smoke; quite smoking, and we encourage family to use a protective helmet for bicycling and other sporting events that present an increased risk for head injury. IF YOUR SYMPTOMS WORSEN OR NEW SYMPTOMS DEVELOP, OR YOU HAVE CONCERNS ABOUT YOUR CONDITION; OR IF YOUR CONDITION WORSENS WHILE YOU ARE WAITING FOR YOUR FOLLOW UP APPOINTMENT; EITHER CONTACT YOUR PRIMARY CARE DOCTOR, THE PHYSICIAN WHOSE NAME AND NUMBER YOU WERE GIVEN, OR RETURN TO THE ED IMMEDIATELY. Scripts Potassium Citrate (POTASSIUM CITRATE) 10 Meq Tablet.er 2 TAB PO BID for low potassium for 1 Day, #4 TAB 3 Refills Prov: ABDIASRAYNA Eric MEEKS 06/20/20 Prednisolone Sod Phosphate (PREDNISOLONE SOD PHOSPHATE) 15 Mg/5 Ml Solution 10 ML PO DAILY for asthma for 4 Days, #40 ML 0 Refills Prov: ABDIASRAYNA M DO 06/20/20 Ondansetron (ONDANSETRON ODT) 4 Mg Tab.rapdis 4 MG PO Q6HRS for Nausea/Vomiting, #15 TAB Prov: ABDIASRAYNA M DO 06/20/20 Albuterol Sulfate (VENTOLIN HFA INHALER) 18 Gm Hfa.aer.ad 1 PUFF IH PRN Q4HRS PRN for FOR ASTHMA for 30 Days, #1 INHALER 0 Refills Prov: ABDIASRAYNA M DO 06/20/20 Fluticasone Propionate (FLOVENT 44MCG HFA) 10.6 Gm Aer.w.adap 2 PUFF IH BID for soa for 30 Days, #1 INHALER 2 Refills Prov: RAYNA CALERO DO 06/20/20 ABDIASRAYNA M DO Jun 20, 2020 12:09
[2020-06-20 14:23] LABS: BASO % 0 % (0-3); EOS # 0.1 x10^3/uL (0.0-0.7); EOS % 1 % (0-3); HEMATOCRIT 39.5 % (36.0-47.0); HEMOGLOBIN 13.3 g/dL (12.0-15.5); LYMPH % 8 % (24-48); MEAN CORPUSCULAR HEMOGLOBIN 30 pg (25-35); MEAN CORPUSCULAR HGB CONC 34 g/dL (31-37); MEAN CORPUSCULAR VOLUME 88 fL (79-100); MONO # 0.2 x10^3/uL (0.0-1.1); MONO % 2 % (0-9); NEUT # 11.2 x10^3uL (1.8-7.7); NEUT % 90 % (31-73); PLATELET COUNT 198 x10^3/uL (140-400); RED BLOOD COUNT 4.49 x10^6/uL (3.50-5.40); RED CELL DISTRIBUTION WIDTH 12.6 % (11.5-14.5); WHITE BLOOD COUNT 12.4 x10^3/uL (4.0-11.0)
[2020-06-20 14:39] LABS: CREATININE 1.1 mg/dL (0.6-1.0); TOTAL BILIRUBIN 0.6 mg/dL (0.2-1.0); TOTAL PROTEIN 8.2 g/dL (6.4-8.2)
[2020-06-20 14:42] LABS: POTASSIUM 2.8 mmol/L (3.5-5.1)
[2020-06-20] MEDS ORDERED: POTASSIUM BICARB 20 MEQ EFFERVESCENT TABLET. PO ONE (14:45)
[2020-06-20] MEDS ORDERED: IOHEXOL 300 MG/ML 75 ML VIAL. IV ONE (15:15)
[2020-06-20] MEDS ORDERED: CONTRAST GIVEN. MC PRN (15:30)
--- NOTE | 2020-06-20 15:54 | RAD ---
Study: CT CHEST WITH CONTRAST - PULMONARY ANGIOGRAM History: Dyspnea. Elevated d-dimer. Cough. Asthma. Pulmonary embolism. Comparison: 02/06/2019 Technique: Helical CT of the chest performed after the administration of 100 cc Omnipaque 240 50 intravenous contrast and timed for angiographic evaluation of the pulmonary arteries per PE protocol. Coronal and sagittal 3D MIP reformations were obtained. One or more of the following individualized dose reduction techniques were utilized for this examination: 1. Automated exposure control 2. Adjustment of the mA and/or kV according to patient size 3. Use of iterative reconstruction technique. Findings: Pulmonary Arteries: No pulmonary embolism is seen throughout the adequately assessed pulmonary arteries. Normal main pulmonary artery caliber. Heart/Systemic Vasculature: Normal aortic caliber. The visualized great vessels are unremarkable. No CT manifestations of right heart strain. Mediastinum: Residual thymic tissue again noted. No adenopathy. Unchanged esophagus. Lungs: No focal airspace consolidation, pleural effusion or pneumothorax. Mild basilar volume loss. Normally aerated central airways. Neck/Axilla/Body Wall: Unchanged thyroid. No axillary adenopathy. Upper Abdomen: No acute process. Bones: Unchanged. Miscellaneous: None. IMPRESSION: No pulmonary embolism or other acute abnormality is seen to account for the patient's symptoms. No relevant change from the 02/06/2019 exam. Electronically signed by: DAVID SELBY MD (06/20/2020 3:51 PM) [id number]
[2020-06-20] MEDS ORDERED: FLUT10.6 IH (16:03)
[2020-06-20] MEDS ORDERED: ALBU2.5V8 IH (16:03)
[2020-06-20] MEDS ORDERED: ONDA4TAB12 PO (16:13)
[2020-06-20] MEDS ORDERED: PRED15SO49 PO (16:13)
[2020-06-20] MEDS ORDERED: POTA10TA17 PO (16:22)
== END 2020-06-20 16:46 | disposition home or self-care (01) ==
LOC: ER 11:01
DX: J45.901 Unspecified asthma with (acute) exacerbation (principal); E87.6 Hypokalemia; F41.9 Anxiety disorder, unspecified; K21.9 Gastro-esophageal reflux disease without esophagitis; E78.00 Pure hypercholesterolemia, unspecified; G43.909 Migraine, unspecified, not intractable, without status migrainosus; Z88.2 Allergy status to sulfonamides; Z88.8 Allergy status to other drugs, medicaments and biological substances
CPT/HCPCS: 36415; 71045; 71275; 80053; 81025; 83735; 84484; 85025; 85379; 94640; 96372; 99285; J1100

== ENCOUNTER 2020-06-22 17:31 | Inpatient (IN) | payer BC ==
[~2020-06-22] VITALS: Ht 162.6 cm; Wt 73.8 kg
[~2020-06-22 17:31] MED LIST changes: +ALBU2.5V8 IH; +FLUT10.6 IH; +ONDA4TAB12 PO; +POTA10TA17 PO; +PRED15SO49 PO
--- NOTE | 2020-06-22 17:57 | PHYS DOC ---
Past History Past Medical History: Asthma Additional Past Medical Histor: Vitamin D defeciency, iron defeciency, Emery- Nicolas, colitis esinophilic, Past Surgical History: Appendectomy, Cholecystectomy Additional Past Surgical Histo: hernia repair Smoking: Non-smoker Alcohol Use: None Drug Use: None General Adult EDM: Chief Complaint: DYSPNEA/RESPIRATOY DISTRESS HPI: HPI: "..My asthma... I can't seemed.. to get... over it..."." I am just ... as ... bad... as ...the other... night... " Patient is a 25 year old female who presents with above hx and complaints of asthma exacerbation. Patient seen on 06/20/2020 for asthma exacerbation. Patient complains that she has had no improvement in her dry nonproductive cough. Has had increased shortness of breath and wheezing. Patient complains of rhinorrhea, itchy eyes,. Patient states she had been started on Ceddinir for bronchitis. Patient states she has had history of seasonal asthma exacerbations for years. Asthma exacerbations seem to be triggered by allergies related to the seasons particularly in fall. Patient does not know her best peak flow. Patient denies any history of intubations for asthma. Patient denies any specific ill contacts. No recent travel outside the [place] area. Patient previously evaluated in ED, as part of the work up did have a CT angio of chest - No PE or other acute abnormality noted. No interval change from 02/06/2019. Pt. was given steroids on 06/20/2020. Patient does have a history of hypo- magnesium. Past medical history of anxiety, asthma, depression, GERD, elevated cholesterol, migraines, sinusitis, vitamin D deficiency,, iron deficiency, Emery-Nicolas positive, eosinophilic colitis. Patient has been diagnosed with a nonspecific immune deficiency which she follows at oncology and hematology Dr. Lowe. Pt. has not followed with pulmonary as yet. Pt. follows with Dr. Yu as primary. Review of Systems: Review of Systems: Constitutional: Denies fever or chills Eyes: Denies change in visual acuity HENT: Denies nasal congestion or sore throat Respiratory: Denies cough or shortness of breath Cardiovascular: Denies chest pain or edema GI: Denies abdominal pain, nausea, vomiting, bloody stools or diarrhea : Denies dysuria Musculoskeletal: Denies back pain or joint pain Integument: Denies rash Neurologic: Denies headache, focal weakness or sensory changes Endocrine: Denies polyuria or polydipsia Lymphatic: Denies swollen glands Psychiatric: Denies depression or anxiety Heart Score: HEART Score for Chest Pain: HEART Score for Chest Pain Response (Comments) Value History Slighlty/Non-Suspicious 0 ECG Normal 0 Age < 45 0 Risk Factors 1 or 2 Risk Factors 1 Troponin < Normal Limit 0 Total 1 Risk Factors: Risk Factors: DM, Current or recent (<one month) smoker, HTN, HLP, family history of CAD, obesity. Risk Scores: Score 0 - 3: 2.5% MACE over next 6 weeks - Discharge Home Score 4 - 6: 20.3% MACE over next 6 weeks - Admit for Clinical Observation Score 7 - 10: 72.7% MACE over next 6 weeks - Early Invasive Strategies Family History: Family History: Noncontributory to presentation Current Medications: Current Meds: See nursing for home meds Allergies: Allergies: Allergies Coded Allergies Type Severity Reaction Last Updated Verified Sulfa (Sulfonamide Antibiotics) Allergy Intermediate 04/15/17 Yes prednisone Adverse Reaction Mild N/V 06/22/20 Yes Physical Exam: PE: Constitutional: in moderate acute distress, non-toxic appearance. [] HENT: Normocephalic, atraumatic, bilateral external ears normal, oropharynx moist, postnasal drainage, no oral exudates, nose swollen turbinates with clear rhinorrhea Eyes: PERRLA, EOMI, conjunctiva normal, no discharge. [] Neck: Normal range of motion, no tenderness, supple, no stridor. [] Cardiovascular: Tachycardia heart rate regular rhythm, no murmur [] Lungs & Thorax: Bilateral breath sounds equal apex with scattered wheezing throughout on auscultation [] Abdomen: Bowel sounds normal, soft, no tenderness, no masses, no pulsatile masses. Obese. Old surgery scars. Skin: Warm, dry, no erythema, no rash. [] Back: No tenderness, no CVA tenderness. [] Extremities: No tenderness, no cyanosis, no clubbing, ROM intact, no edema. No cording appreciated Neurologic: Alert and oriented X 3, normal motor function, normal sensory function, no focal deficits noted. [] Psychologic: Affect anxious, judgement normal, mood normal. [] EKG: EKG: My interpretation EKG shows a sinus tachycardia 102 bpm. Mild right axis. Does have occasional dropped QRS. [] Radiology/Procedures: Radiology/Procedures: [][address] [address] IMAGING REPORT Signed PATIENT: ISAURO ELAINE ACCOUNT: [id number] : 1995 LOCATION: ER AGE: 25 SEX: F EXAM STATUS: REG ER ORD. PHYSICIAN: JUANA CRUZ MD REASON: dyspnea PROCEDURE: PORTABLE CHEST 1V Exam: Chest one view INDICATION: Dyspnea TECHNIQUE: Frontal view of the chest Comparisons: None FINDINGS: The cardiomediastinal silhouette and pulmonary vessels are within normal limits. The lung and pleural spaces are clear. IMPRESSION: No acute cardiopulmonary process. Electronically signed by: Wilber Brannon MD (06/22/2020 6:52 PM) [facility] DICTATED AND SIGNED BY: WILBER BRANNON MD DATE: 06/22/201851 CC: JUANA CRUZ MD; JOEL YU PAC ~ Course & Med Decision Making: Course & Med Decision Making Pertinent Labs and Imaging studies reviewed. (See chart for details) Discussed presentation, testing and treatment plan with . Pt. to be admitted for Asthma exacerbation. Pt. D-dimer normal to night. Impression: 1. Asthma Exacerbation 2. Out pt. Failure 3. Leukocytosis 12.2 4. Viral Syndrome 5. Elevated ALT./ AST 128/54 6. Elevated CRP 13.5 7. Elevated Creqt. 1.l 8. Elevated Glucose 138 [] Dragon Disclaimer: Dragon Disclaimer: This electronic medical record was generated, in whole or in part, using a voice recognition dictation system. Departure Departure: Disposition: 01 DC HOME SELF CARE/HOMELESS Condition: STABLE Referrals: JOEL YU PAC (PCP) Dragon Disclaimer This chart was dictated in whole or in part using Voice Recognition software in a busy, high-work load, and often noisy Emergency Department environment. It may contain unintended and wholly unrecognized errors or omissions. Dragon Disclaimer This chart was dictated in whole or in part using Voice Recognition software in a busy, high-work load, and often noisy Emergency Department environment. It may contain unintended and wholly unrecognized errors or omissions. JUANA CRUZ MD Jun 22, 2020 17:57
[2020-06-22] MEDS ORDERED: IV RINGERS SOLUTION,LACTATED 1,000 ML IV SCH (18:08)
[2020-06-22] MEDS ORDERED: methylPREDNISolone SOD SUCC PF 125 MG/2 ML VIAL. IM ONE (18:15)
[2020-06-22] MEDS ORDERED: AZITHROMYCIN 250 MG TABLET. PO ONE (18:15)
[2020-06-22] MEDS ORDERED: ENOXAPARIN ** NOTE DOSE ** SYRINGE SQ ONE (18:15)
[2020-06-22] MEDS ORDERED: cefTRIAXone SODIUM 1 GM VIAL ONE (18:36)
[2020-06-22] MEDS ORDERED: IV NORMAL SALINE 50ML 50 ML ONE (18:36)
--- NOTE | 2020-06-22 18:44 | EKG ---
[address] [address] Test Date: 2020-06-22 Test Time: 18:26:41 Pat Name: ISAURO ELAINE Department: Room: Gender: F [employer]: [id number] : 1995 Requested By: JUANA CRUZ Order Number: [id number] Reading MD: Measurements Intervals [place] Rate: 102 P: 90 SC: 122 QRS: 94 QRSD: 88 T: 60 QT: 322 QTc: 424 Interpretive Statements SINUS TACHYCARDIA RIGHTWARD AXIS OTHERWISE NORMAL ECG RI6.02 No previous ECG available for comparison
--- NOTE | 2020-06-22 18:54 | RAD ---
Exam: Chest one view INDICATION: Dyspnea TECHNIQUE: Frontal view of the chest Comparisons: None FINDINGS: The cardiomediastinal silhouette and pulmonary vessels are within normal limits. The lung and pleural spaces are clear. IMPRESSION: No acute cardiopulmonary process. Electronically signed by: Wilber Michel MD (06/22/2020 6:52 PM) [facility]
[2020-06-22 18:56] LABS: BASO % 0 % (0-3); EOS % 0 % (0-3); HEMATOCRIT 40.5 % (36.0-47.0); HEMOGLOBIN 13.2 g/dL (12.0-15.5); LYMPH % 8 % (24-48); MEAN CORPUSCULAR HEMOGLOBIN 29 pg (25-35); MEAN CORPUSCULAR HGB CONC 33 g/dL (31-37); MEAN CORPUSCULAR VOLUME 89 fL (79-100); MONO # 0.5 x10^3/uL (0.0-1.1); MONO % 4 % (0-9); NEUT # 10.7 x10^3uL (1.8-7.7); NEUT % 87 % (31-73); PLATELET COUNT 264 x10^3/uL (140-400); RED BLOOD COUNT 4.55 x10^6/uL (3.50-5.40); RED CELL DISTRIBUTION WIDTH 13.1 % (11.5-14.5); WHITE BLOOD COUNT 12.2 x10^3/uL (4.0-11.0)
[2020-06-22 19:03] LABS: CALCIUM 9.7 mg/dL (8.5-10.1); CREATININE 1.1 mg/dL (0.6-1.0); POTASSIUM 3.7 mmol/L (3.5-5.1)
[2020-06-22 19:05] LABS: BARBITURATES NEG (NEG); BENZODIAZEPINES NEG (NEG); CANNABINOIDS NEG (NEG); COCAINE NEG (NEG); METHADONE NEG (NEG); OPIATES NEG (NEG); PHENCYCLIDINE NEG (NEG)
[2020-06-22 19:13] LABS: AMPHETAMINE/METHAMPHETAMINE NEG (NEG)
[2020-06-22 19:15] LABS: ALBUMIN 4.2 g/dL (3.4-5.0); C REACTIVE PROTEIN 13.5 mg/L (0-3.3); DIRECT BILIRUBIN 0.1 mg/dL (0.0-0.2); MAGNESIUM 2.1 mg/dL (1.8-2.4); TOTAL BILIRUBIN 0.2 mg/dL (0.2-1.0); TOTAL PROTEIN 8.9 g/dL (6.4-8.2)
[2020-06-22 19:26] LABS: BACTERIA,URINE 0 /HPF (0-FEW); BILIRUBIN,URINE NEG (NEG); CLARITY,URINE CLEAR; COLOR,URINE YELLOW; GLUCOSE,URINE NEG (NEG); NITRITE,URINE NEG (NEG); RBC,URINE OCC /HPF (0-2); SQUAMOUS EPITHELIAL CELL,UR FEW /LPF; UROBILINOGEN,URINE 0.2 mg/dL (0.2 mg/dL)
[2020-06-22] MEDS: IPRATRPIUM/ALBUTEROL 0.5/2.5MG 3 ML NEBU. NEB SCH (20:20)
[2020-06-22] MEDS: methylPREDNISolone SOD SUCC PF 40 MG/ML VIAL. IV SCH (21:00)
[2020-06-22 21:50] VITALS: BP 139/88
[2020-06-22] MEDS: ACETAMINOPHEN 325 MG TABLET PO PRN (23:09)
[2020-06-22] MEDS ORDERED: PREN1TAB58 PO (23:49)
[2020-06-22] MEDS ORDERED: PSYL0.5215 PO (23:49)
[2020-06-22] MEDS ORDERED: DIPH25CA58 PO (23:49)
[2020-06-22] MEDS ORDERED: MELA10CA PO (23:49)
[2020-06-22] MEDS ORDERED: CETI10TA74 PO (23:49)
[2020-06-22] MEDS ORDERED: BUSP10TA PO (23:49)
[2020-06-22] MEDS ORDERED: MAGN250T10 PO (23:49)
[2020-06-22] MEDS ORDERED: ONDA4TAB7 PO (23:49)
[2020-06-22] MEDS ORDERED: L.AC1CAP6 PO (23:49)
[2020-06-22] MEDS ORDERED: MONT10TA80 PO (23:49)
--- NOTE | 2020-06-22 23:50 | NUR ---
The patient, ISAURO ELAINE, 25 y/o, F admitted by KAYLA TEJEDA MD, was given written information regarding hospital policies, unit procedures and contact persons. Valuables were checked and noted. PT presented for a third visit this week for shortness of breath and admitted for same for failed outpatient therapy. PT oriented to unit. Reviewed with the PT her PMH, PSH, SH, FH and medications. PT concerned about length of stay.
[2020-06-23] MEDS: IPRATRPIUM/ALBUTEROL 0.5/2.5MG 3 ML NEBU. NEB SCH ×2 (05:20→12:16)
[2020-06-23 05:31] VITALS: BP 121/81
[2020-06-23] MEDS ORDERED: ENOXAPARIN ** NOTE DOSE ** SYRINGE SQ ONE (06:00)
[2020-06-23] MEDS: AZITHROMYCIN 250 MG TABLET. PO SCH (08:23)
[2020-06-23] MEDS: ACETAMINOPHEN 325 MG TABLET PO PRN (08:23)
[2020-06-23] MEDS: methylPREDNISolone SOD SUCC PF 40 MG/ML VIAL. IV SCH ×4 (09:06→20:54)
[2020-06-23 11:09] VITALS: BP 130/75
[2020-06-23] MEDS ORDERED: CETIRIZINE HCL 10 MG TABLET PO PRN (14:00)
[2020-06-23] MEDS ORDERED: ALBUTEROL SULFATE 2.5 MG/3 ML NEBU. IH PRN (14:00)
[2020-06-23] MEDS ORDERED: IPRATRPIUM/ALBUTEROL 0.5/2.5MG 3 ML NEBU. NEB PRN (14:00)
[2020-06-23] MEDS ORDERED: diphenhydrAMINE HCL 25 MG CAPSULE PO PRN (14:00)
[2020-06-23] MEDS ORDERED: ONDANSETRON ODT 4 MG TAB.RAPDIS PO PRN ×2 (14:15)
[2020-06-23] MEDS ORDERED: MELATONIN 3 MG TABLET PO PRN (14:15)
[2020-06-23] MEDS ORDERED: HYDROcodone/APAP 7.5/325MG 1 TAB TABLET PO PRN (14:30)
[2020-06-23 14:40] VITALS: BP 115/74
--- NOTE | 2020-06-23 15:30 | HP ---
ADMIT DATE: 06/22/2020 HISTORY OF PRESENT ILLNESS: The patient is a 25-year-old female patient who came to the Emergency Room complaining of shortness of breath and respiratory distress. She is known to have bronchial asthma and apparently was seen in the Emergency Room on 3 consecutive nights. She was seen initially on 06/20/2020 for asthma exacerbation. The patient complained that she has had no improvement in her dry, nonproductive cough. She had increased shortness of breath and wheezing. The patient complained of rhinorrhea, itchy eyes. The patient stated that she had been started on cefdinir for bronchitis. She has a history of seasonal asthma exacerbation for years. Asthma exacerbation seems to be triggered by allergies related to seasons, particularly in the fall. She does not know her best peak flow. The patient denies any history of intubation for asthma. Denied any specific ill contact. No recent travel outside [place]. The patient previously evaluated in the emergencies. As part of workup, she did have a CT angio of the chest. No PE or other acute abnormality noted. No interval changes from 02/06/2019. Apparently, she was given steroids and also has a history of hypomagnesemia and basically a decision was made to admit her for inpatient treatment with steroids. PAST MEDICAL HISTORY: Significant for bronchial asthma since childhood. She has also ____ [facility] virus and borderline leukemia. She apparently continues to follow with her surgical assist at [place]. She has also iron deficiency anemia for which she has been receiving IV iron treatment. 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 PAST SURGICAL HISTORY: Significant for cholecystectomy and umbilical hernia repair as well as appendectomy. ALLERGIES: SHE IS ALLERGIC TO SULFA AND PREDNISONE. FAMILY HISTORY: She has one brother, who is younger, 18 years old and has bronchial asthma. She does not know her father. Her mother is alive at age of 44 and apparently healthy. SOCIAL HISTORY: She is single, never , has no children. She does not smoke, drink alcohol or use any recreational drugs. 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 MEDICATIONS: She is currently on following medications: She is on diphenhydramine 25 mg at bedtime, cetirizine 10 mg daily, ipratropium bromide and albuterol sulfate for DuoNeb 3 mL by nebulizer twice a day, albuterol sulfate 1 puff every 4 hours as needed, buspirone 10 mg twice a day, Flovent 44 mcg 2 puffs twice a day, Singulair 10 mg once a day at bedtime, magnesium oxide 250 mg daily, psyllium husk 520 mg capsule once a day, ondansetron 4 mg every 6-8 hours, probiotic 1 capsule daily. She is on prednisolone; sodium phosphate 15 mg per 5 mL solution, she takes 10 mL daily and vitamin with mineral 1 tablet once a day, melatonin 10 mg capsule once a day. REVIEW OF SYSTEMS: As per history of present illness. PHYSICAL EXAMINATION: GENERAL: On arrival to the Emergency Room, the patient apparently was slightly tachypneic, tachycardic, but there is no pallor, jaundice, cyanosis, or thyromegaly. No jugular venous distension. No limb edema. VITAL SIGNS: Her heart rate was 126, blood pressure was 139/74, temperature was 98, respiratory rate was 24, and oxygen saturation 100% on room air. HEAD, EYES, EARS, NOSE AND THROAT: Showed normocephalic, atraumatic. NECK: Supple. HEART: Normal first and second heart sounds. No gallop, rub or murmur. CHEST: Showed that she has bilateral breath sounds equal with scattered wheezing throughout on auscultation. ABDOMEN: Soft, nontender. No guarding or rigidity. No organomegaly. All hernial orifices intact. Bowel sounds normal. NEUROLOGIC: She was awake, alert, responding appropriately. All her cranial nerves intact. EXTREMITIES: She moves extremities without difficulty. She has no evidence of sensory deficit. PSYCHIATRIC: Her affect, judgment and mood were normal. Her EKG showed that she was in sinus tachycardia at a heart rate of 102 beats per minute with mild right axis deviation. Does have occasional dropped QRS. Her chest x-ray showed the cardiomediastinal silhouette and pulmonary vessels are within normal limits. The lungs and pleural spaces are clear. LABORATORY DATA: Her lab work showed white cell count of 12,200, hemoglobin 13, hematocrit 40, MCV 89 and platelet count of 264,000 with normal manual differential. Serum sodium was 138, potassium 3.7, chloride 103, bicarbonate 24, anion gap of 11, BUN 10, creatinine 1.1, estimated GFR was 61 mL per minute. Her glucose 138, calcium was 9.7, magnesium was 2.1. Total bilirubin, AST, ALT slightly elevated. Alkaline phosphatase is normal. Her total protein was 8.9, albumin was 4.2 and lipase 118. Her prothrombin time, INR and aPTT as well as D-dimer were normal. Urinalysis was essentially negative. Her test was negative. Toxic screen was basically negative. ASSESSMENT AND PLAN: The patient was admitted with acute asthma exacerbation. She was basically admitted and was continued on steroids as well as azithromycin, albuterol and Atrovent and we will reconcile all her medications and follow her closely. KAYLA TEJEDA MD DR: VINICIO/ga JOB#: [id number] / [id number]
[2020-06-23] MEDS: LIDOCAINE (700MG/PATCH) PATCH. TD SCH (18:00)
--- NOTE | 2020-06-23 18:12 | NUR ---
CONSULT FOR CARDIOLOGY CALLED
--- NOTE | 2020-06-23 18:54 | PN ---
DATE: 06/23/2020 SUBJECTIVE: The patient is sitting up in her bed, in no apparent distress. She continued to complain of pressure on her chest that is reproducible. She has what seemed to be costochondritis and said she has this problem before and her mother has the same problem. OBJECTIVE: GENERAL: When I examined her this afternoon, she looked well and was clearly in no apparent respiratory distress. She has no pallor, jaundice or cyanosis. No lymphadenopathy or thyromegaly. No jugular venous distention. No lower limb edema. VITAL SIGNS: Her heart rate this afternoon was 96, blood pressure was 130/75, temperature was 98.5, respiratory rate was 20, and oxygen saturation was 97%. HEAD, EYES, EARS, NOSE AND THROAT: Showed normocephalic, atraumatic. NECK: Supple. HEART: Normal first and second heart sounds. No gallop or murmur. CHEST: Showed central trachea, equal bilateral expansion, air entry, vesicular sounds. I really could not appreciate any crepitation or rhonchi. ABDOMEN: Distended, soft, nontender. NEUROLOGIC: She is grossly intact. ASSESSMENT: Acute asthma exacerbation. She also has this chest pressure and tenderness at the costochondral junction, more on the left than right side. PLAN: My plan is to continue with all her medication. I reconciled all her medications. I will add Lidoderm patches to both sides of the costochondral junction. We will also start her on hydrocodone for pain management and we will decide the further management accordingly. I will repeat all her labs again tomorrow. KAYLA TEJEDA MD DR: VINICIO/ga JOB#: [id number] / [id number]
[2020-06-23 19:00] VITALS: BP 138/76
[2020-06-23] MEDS: LACTOBACILLUS RHAMNOSUS GG 1 CAPSULE. PO SCH (20:55)
[2020-06-23] MEDS: busPIRone 10 MG TABLET. PO SCH (20:55)
[2020-06-23] MEDS ORDERED: MONTELUKAST 10 MG TABLET. PO SCH (21:00)
[2020-06-23] MEDS ORDERED: NON FORMULARY ITEM (Fluticasone Propionate (Flovent 44MCG Hfa) 2 PUFF) IH SCH (21:00)
[2020-06-23] MEDS: BUDESONIDE 0.5 MG/2 ML NEBU NEB SCH (21:23)
--- NOTE | 2020-06-23 22:00 | EKG ---
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
[2020-06-23 22:58] VITALS: BP 118/69
--- NOTE | 2020-06-24 02:05 | NUR ---
Pt anxious/tearful at shift change. Requested home dose of Buspar, melatonin for anxiety and sleep. Administered at HS per orders. Pt calmed, has been resting through shift. Lidocaine patches removed from chest approx. 0145 r/t c/o itching. Area cleansed and pt instructed to notify RN of further itching.
[2020-06-24 06:29] VITALS: BP 101/62
[2020-06-24 07:23] LABS: ALBUMIN 3.4 g/dL (3.4-5.0); ALBUMIN/GLOBULIN RATIO 0.8 (1.0-1.7); CALCIUM 9.1 mg/dL (8.5-10.1); GFR 68.1; TOTAL BILIRUBIN 0.2 mg/dL (0.2-1.0); TOTAL PROTEIN 7.6 g/dL (6.4-8.2)
[2020-06-24 07:59] LABS: HEMATOCRIT 38.8 % (36.0-47.0); HEMOGLOBIN 12.8 g/dL (12.0-15.5); RED BLOOD COUNT 4.38 x10^6/uL (3.50-5.40); RED CELL DISTRIBUTION WIDTH 13.1 % (11.5-14.5); WHITE BLOOD COUNT 14.2 x10^3/uL (4.0-11.0)
[2020-06-24] MEDS ORDERED: MAGNESIUM OXIDE 400 MG TABLET PO SCH (09:00)
[2020-06-24] MEDS ORDERED: PSYLLIUM SEED (WITH SUGAR) PACKET. PO SCH (09:00)
[2020-06-24] MEDS ORDERED: PRENATAL MULTIVITAMIN TABLET. PO SCH (09:00)
[2020-06-24] MEDS: busPIRone 10 MG TABLET. PO SCH (09:08)
[2020-06-24] MEDS: AZITHROMYCIN 250 MG TABLET. PO SCH (09:08)
[2020-06-24] MEDS: BUDESONIDE 0.5 MG/2 ML NEBU NEB SCH (09:09)
[2020-06-24] MEDS: methylPREDNISolone SOD SUCC PF 40 MG/ML VIAL. IV SCH ×2 (09:09→12:26)
[2020-06-24] MEDS: LACTOBACILLUS RHAMNOSUS GG 1 CAPSULE. PO SCH (09:09)
[2020-06-24] MEDS: LIDOCAINE (700MG/PATCH) PATCH. TD SCH (09:18)
[2020-06-24 11:13] VITALS: BP 117/75
--- NOTE | 2020-06-24 14:26 | NUR ---
Patient discharged to home. Given written discharge instructions and voiced understanding. All patient belongings sent home with patient. Ambulated self off unit to family vehicle.
--- NOTE | 2020-06-24 15:19 | PDOC2 ---
CONSULT DOS: DATE: 06/24/20 TIME: 15:12 Reason for Consult: chest pain, SOB Referring Physician: Dr. Ibarra Chief Complaint SOB Source: Chart review, Patient Problem List Problems Medical Problems: (1) Respiratory distress Status: Acute History of Present Illness The patient is a pleasant 25-year-old female who presented to the emergency room with 24 hours of increasing shortness of breath and wheezing. She does have a history of asthma particularly exacerbated by allergies. She also reported episodes of chest pain during her shortness of breath. Chest x-ray showed no acute processes. EKG shows a sinus rhythm with no acute ischemic changes. An e arlier work-up with a CTA of the chest showed no pulmonary embolism. The patient has been treated with pulmonary medications overnight and is feeling much better today. Her chest pain has resolved. Troponin x3 have been normal. Pulmonary: Asthma GI: Other (Colitis) Heme/Onc: Other (Immunodeficiency syndrome followed at , [facility].) Past Surgical History: Appendectomy, Cholecystectomy, Hernia Repair Family History: Hypertension Smoke: No ALCOHOL: none Current Medications Current Medications Lactated Ringer's 1,000 ml @ 1,000 mls/hr Q1H IV Last administered on 06/22/20at 18:40; Start 06/22/20 at 18:08; Stop 06/22/20 at 19:07; Status DC Methylprednisolone Sodium Succinate (SOLU-Medrol 125MG VIAL) 125 mg 1X ONCE IM Last administered on 06/22/20at 18:47; Start 06/22/20 at 18:15; Stop 06/22/20 at 18:21; Status DC Ceftriaxone Sodium 1 gm/ Sodium Chloride 50 ml @ 100 mls/hr 1X ONCE IV Last administered on 06/22/20at 18:56; Start 06/22/20 at 18:15; Stop 06/22/20 at 18:44; Status DC Azithromycin (Zithromax) 500 mg 1X ONCE PO Last administered on 06/22/20at 18: 50; Start 06/22/20 at 18:15; Stop 06/22/20 at 18:21; Status DC Enoxaparin Sodium (Lovenox 80mg Syringe) 70 mg 1X ONCE SQ Last administered on 06/22/20at 18:57; Start 06/22/20 at 18:15; Stop 06/22/20 at 18:21; Status DC Sodium Chloride 50 ml @ As Directed STK-MED ONCE .ROUTE ; Start 06/22/20 at 18:36; Stop 06/22/20 at 18:36; Status DC Ceftriaxone Sodium (Rocephin) 1 gm STK-MED ONCE .ROUTE ; Start 06/22/20 at 18:36; Stop 06/22/20 at 18:36; Status DC Methylprednisolone Sodium Succinate (SOLU-Medrol 40MG VIAL) 40 mg QID IV Last administered on 06/24/20at 12:26; Start 06/22/20 at 21:00; Stop 06/24/20 at 14:28; Status DC Albuterol/ Ipratropium (Duoneb) 3 ml RTQID NEB Last administered on 06/23/20at 12:16; Start 06/22/20 at 20:00; Stop 06/23/20 at 14:05; Status DC Enoxaparin Sodium (Lovenox 80mg Syringe) 70 mg [id number] ONCE SQ ; Start 06/23/20 at 06:00; Stop 06/23/20 at 06:01; Status DC Ceftriaxone Sodium 1 gm/ Sodium Chloride 50 ml @ 100 mls/hr DAILY ONCE IV Last administered on 06/23/20at 08:24; Start 06/23/20 at 09:00; Stop 06/23/20 at 09:29; Status DC Azithromycin (Zithromax) 250 mg DAILY PO Last administered on 06/24/20at 09:08; Start 06/23/20 at 09:00; Stop 06/24/20 at 14:28; Status DC Acetaminophen (Tylenol) 650 mg PRN Q6HRS PRN PO MILD PAIN / TEMP > 100.3'F Last administered on 06/23/20at 08:23; Start 06/22/20 at 22:30; Stop 06/24/20 at 14:28; Status DC Albuterol Sulfate (Ventolin) 2.5 mg PRN Q4HRS PRN IH FOR ASTHMA; Start 06/23/20 at 14:00; Stop 06/24/20 at 14:28; Status DC Buspirone HCl (Buspar) 10 mg BID PO Last administered on 06/24/20at 09:08; Start 06/23/20 at 21:00; Stop 06/24/20 at 14:28; Status DC Cetirizine HCl (ZyrTEC) 10 mg PRN DAILY PRN PO ALLERGIES; Start 06/23/20 at 14:00; Stop 06/24/20 at 14:28; Status DC Diphenhydramine HCl (Benadryl) 50 mg PRN QHS PRN PO INSOMNIA; Start 06/23/20 at 14:00; Stop 06/24/20 at 14:28; Status DC Albuterol/ Ipratropium (Duoneb) 3 ml PRN BID PRN NEB SHORTNESS OF BREATH; Start 06/23/20 at 14:00; Stop 06/24/20 at 14:28; Status DC Montelukast Sodium (Singulair) 10 mg HS PO Last administered on 06/23/20at 20:57; Start 06/23/20 at 21:00; Stop 06/24/20 at 14:28; Status DC Multivit/ Folic Acid/Iron (Multivitamin ) 1 tab DAILY PO Last administered on 06/24/20at 09:09; Start 06/24/20 at 09:00; Stop 06/24/20 at 14:28; Status DC Non-Formulary Medication (Fluticasone Propionate (Flovent 44MCG Hfa)) 2 puff BID IH ; Start 06/23/20 at 21:00; Status UNV Lactobacillus Rhamnosus (Culturelle) 1 cap BID PO Last administered on 06/24/20at 09:09; Start 06/23/20 at 21:00; Stop 06/24/20 at 14:28; Status DC Magnesium Oxide (Magnesium Oxide) 200 mg DAILY PO Last administered on 06/24/20at 09:08; Start 06/24/20 at 09:00; Stop 06/24/20 at 14:28; Status DC Melatonin (Melatonin) 9 mg PRN QHS PRN PO INSOMNIA Last administered on 06/23/20at 20:55; Start 06/23/20 at 14:15; Stop 06/24/20 at 14:28; Status DC Ondansetron HCl (Zofran Odt) 4 mg PRN Q8HRS PRN PO NAUSEA/VOMITING; Start 06/23/20 at 14:15; Stop 06/24/20 at 14:28; Status DC Psyllium Hydrophilic Mucilloid (Metamucil) 1 pkt DAILY PO Last administered on 06/24/20at 09:09; Start 06/24/20 at 09:00; Stop 06/24/20 at 14:28; Status DC Ondansetron HCl (Zofran Odt) 4 mg PRN Q6HRS PRN PO NAUSEA/VOMITING; Start 06/23/20 at 14:15; Stop 06/24/20 at 14:29; Status DC Budesonide (Pulmicort) 0.5 mg RTBID NEB Last administered on 06/24/20at 09:09; Start 06/23/20 at 20:00; Stop 06/24/20 at 14:29; Status DC Lidocaine (Lidoderm) 2 patch DAILY TD Last administered on 06/24/20at 09:18; Start 06/23/20 at 18:00; Stop 06/24/20 at 14:29; Status DC Acetaminophen/ Hydrocodone Bitart (Lortab 7.5/325) 1 tab PRN Q6HRS PRN PO PAIN Last administered on 06/23/20at 16:11; Start 06/23/20 at 14:30; Stop 06/24/20 at 14:29; Status DC Active Scripts Active Prednisolone Sod Phosphate 15 Mg/5 Ml Solution 10 Ml PO DAILY 4 Days Ventolin Hfa Inhaler (Albuterol Sulfate) 18 Gm Hfa.aer.ad 1 Puff IH PRN Q4HRS PRN 30 Days Flovent 44MCG Hfa (Fluticasone Propionate) 10.6 Gm Aer.w.adap 2 Puff IH BID 30 Days Duoneb 0.5-3(2.5) Mg/3 Ml (Albuterol/Ipratropium) 3 Ml Ampul.neb 3 Ml NEB BID PRN Reported Zyrtec (Cetirizine Hcl) 10 Mg Tablet 1 Tab PO DAILY PRN Daily if needed for allergies. Probiotic (L.acidoph & Paracasei,B.lactis) 1 Each Capsule 1 Each PO DAILY Take tomorrow morning. Melatonin 10 Mg Capsule 1 Cap PO QHS PRN 30 Days Take tonight before bed for isomnia. Magnesium (Magnesium Oxide) 250 Mg Tablet 1 Tab PO DAILY 30 Days Take tomorrow AM. Benadryl (Diphenhydramine Hcl) 25 Mg Capsule 2 Cap PO QHS PRN 30 Days When needed for insomnia. Singulair Tablet (Montelukast Sodium) 10 Mg Tablet 10 Mg PO HS Take tonight before bed. Vitamins ( Vits W-Ca,Fe,Fa(<1MG)) 1 Each Tablet 1 Tab PO DAILY 30 Days Take tomorrow AM. Metamucil (Psyllium Husk) 0.52 Gm Capsule 1 Cap PO DAILY 30 Days Take tomorrow morning for constipation. Buspirone Hcl 10 Mg Tablet 1 Tab PO BID Take this evening. Zofran (Ondansetron Hcl) 4 Mg Tablet 1 Tab PO PRN Q6-8HRS PRN Take when needed for nausea. Allergies: Coded Allergies: Sulfa (Sulfonamide Antibiotics) (Verified Allergy, Intermediate, 04/15/17) prednisone (Verified Adverse Reaction, Mild, N/V, 06/22/20) General: YES: Fatigue Respiratory: YES: Shortness of breath, SOB with excertion, Wheezing General: mild distress HEENT: Atraumatic Lungs: Other (Slightly decreased breath sounds. No wheezing) Heart: Regular rate Abdomen: Normal bowel sounds VITALS Vital Signs Date Time Temp Pulse Resp B/P (MAP) Pulse Ox O2 Delivery O2 Flow Rate FiO2 06/24/20 11:13 98.0 108 20 117/75 (89) 98 Room Air Labs Laboratory Tests Test 06/22/20 18:18 06/22/20 18:25 06/22/20 18:45 06/23/20 15:05 Urine Collection Type Unknown Urine Color Yellow Urine Clarity Clear Urine pH 7.0 Urine Specific [place] 1.020 Urine Protein Neg (NEG-TRACE) Urine Glucose (UA) Neg mg/dL (NEG) Urine Ketones (Stick) Neg mg/dL (NEG) Urine Blood Neg (NEG) Urine Nitrite Neg (NEG) Urine Bilirubin Neg (NEG) Urine Urobilinogen Dipstick 0.2 mg/dL (0.2 mg/dL) Urine Leukocyte Esterase Neg (NEG) Urine RBC Occ /HPF (0-2) Urine WBC 1-4 /HPF (0-4) Urine Squamous Epithelial Cells Few /LPF Urine Bacteria 0 /HPF (0-FEW) Urine Mucus Slight /LPF Urine Opiates Screen Neg (NEG) Urine Methadone Screen Neg (NEG) Urine Barbiturates Neg (NEG) Urine Phencyclidine Screen Neg (NEG) Urine Amphetamine/Methamphetamine Neg (NEG) Urine Benzodiazepines Screen Neg (NEG) Urine Cocaine Screen Neg (NEG) Urine Cannabinoids Screen Neg (NEG) Urine Ethyl Alcohol Neg (NEG) White Blood Count 12.2 x10^3/uL (4.0-11.0) Red Blood Count 4.55 x10^6/uL (3.50-5.40) Hemoglobin 13.2 g/dL (12.0-15.5) Hematocrit 40.5 % (36.0-47.0) Mean Corpuscular Volume 89 fL (79-100) Mean Corpuscular Hemoglobin 29 pg (25-35) Mean Corpuscular Hemoglobin Concent 33 g/dL (31-37) Red Cell Distribution Width 13.1 % (11.5-14.5) Platelet Count 264 x10^3/uL (140-400) Neutrophils (%) (Auto) 87 % (31-73) Lymphocytes (%) (Auto) 8 % (24-48) Monocytes (%) (Auto) 4 % (0-9) Eosinophils (%) (Auto) 0 % (0-3) Basophils (%) (Auto) 0 % (0-3) Neutrophils # (Auto) 10.7 x10^3uL (1.8-7.7) Lymphocytes # (Auto) 1.0 x10^3/uL (1.0-4.8) Monocytes # (Auto) 0.5 x10^3/uL (0.0-1.1) Eosinophils # (Auto) 0.0 x10^3/uL (0.0-0.7) Basophils # (Auto) 0.0 x10^3/uL (0.0-0.2) Prothrombin Time 9.8 SEC (9.4-11.4) Prothromb Time International Ratio 0.9 (0.9-1.1) Activated Partial Thromboplast Time 29 SEC (23-33) D-Dimer (Juliana) 0.20 mg/L (0.00-0.50) Sodium Level 138 mmol/L (136-145) Potassium Level 3.7 mmol/L (3.5-5.1) Chloride Level 103 mmol/L (98-107) Carbon Dioxide Level 24 mmol/L (21-32) Anion Gap 11 (6-14) Blood Urea Nitrogen 10 mg/dL (7-20) Creatinine 1.1 mg/dL (0.6-1.0) Estimated GFR (Cockcroft-Gault) 61.0 Glucose Level 138 mg/dL (70-99) Calcium Level 9.7 mg/dL (8.5-10.1) Magnesium Level 2.1 mg/dL (1.8-2.4) Total Bilirubin 0.2 mg/dL (0.2-1.0) Direct Bilirubin 0.1 mg/dL (0.0-0.2) Aspartate Amino Transf (AST/SGOT) 54 U/L (15-37) Alanine Aminotransferase (ALT/SGPT) 128 U/L (14-59) Alkaline Phosphatase 95 U/L (46-116) Creatine Kinase 76 U/L (26-192) Troponin I Quantitative < 0.017 ng/mL (0-0.055) < 0.017 ng/mL (0-0.055) C-Reactive Protein 13.5 mg/L (0-3.3) GB-Pue-O-Type Natriuretic Peptide 221 pg/mL (0-124) Total Protein 8.9 g/dL (6.4-8.2) Albumin 4.2 g/dL (3.4-5.0) Lipase 118 U/L (73-393) Thyroid Stimulating Hormone (TSH) 0.201 uIU/mL (0.358-3.740) Bedside Urine HCG, Qualitative hcg negative (Negative) Test 06/23/20 20:00 06/24/20 06:52 Troponin I Quantitative < 0.017 ng/mL (0-0.055) White Blood Count 14.2 x10^3/uL (4.0-11.0) Red Blood Count 4.38 x10^6/uL (3.50-5.40) Hemoglobin 12.8 g/dL (12.0-15.5) Hematocrit 38.8 % (36.0-47.0) Mean Corpuscular Volume 89 fL (79-100) Mean Corpuscular Hemoglobin 29 pg (25-35) Mean Corpuscular Hemoglobin Concent 33 g/dL (31-37) Red Cell Distribution Width 13.1 % (11.5-14.5) Platelet Count 291 x10^3/uL (140-400) Sodium Level 138 mmol/L (136-145) Potassium Level 4.0 mmol/L (3.5-5.1) Chloride Level 104 mmol/L (98-107) Carbon Dioxide Level 22 mmol/L (21-32) Anion Gap 12 (6-14) Blood Urea Nitrogen 13 mg/dL (7-20) Creatinine 1.0 mg/dL (0.6-1.0) Estimated GFR (Cockcroft-Gault) 68.1 BUN/Creatinine Ratio 13 (6-20) Glucose Level 125 mg/dL (70-99) Calcium Level 9.1 mg/dL (8.5-10.1) Total Bilirubin 0.2 mg/dL (0.2-1.0) Aspartate Amino Transf (AST/SGOT) 15 U/L (15-37) Alanine Aminotransferase (ALT/SGPT) 97 U/L (14-59) Alkaline Phosphatase 76 U/L (46-116) Total Protein 7.6 g/dL (6.4-8.2) Albumin 3.4 g/dL (3.4-5.0) Albumin/Globulin Ratio 0.8 (1.0-1.7) Images Chest x-ray with no acute process. Assessment/Plan 1. Exacerbation of asthma. Patient is significantly improved today after treatment. History of asthma as noted above. We will continue present treatments and increase activities. 2. Episodes of chest pain. These occurred during her asthma exacerbation. No EKG evidence of ischemia. Troponin normal x3. No chest pain today. 3. History of an immunodeficiency. Followed at . Would gradually increase activities this morning. Stable from a cardiac viewpoint. Thank you for allowing us to participate in the care of your patient. EMMIE DALY MD Jun 24, 2020 15:19
--- NOTE | 2020-06-24 18:55 | DS ---
DATE OF DISCHARGE: 06/24/2020 HOSPITAL COURSE: The patient is a 25-year-old female patient who was admitted with acute asthma exacerbation. We did treat her with steroids, inhalers, and Pulmicort and she did actually fairly well. When I saw her this afternoon, she was actually resting flat, comfortably in bed, in no apparent respiratory distress, maintaining her oxygen saturation at 98%. She is not using any accessory muscles in the chest. PHYSICAL EXAMINATION: GENERAL: When I examined her, she looked well and was clearly in no apparent respiratory distress. No pallor, jaundice, cyanosis, or thyromegaly. No jugular venous distention or limb edema. VITAL SIGNS: Her heart rate was 108, blood pressure was 117/75, temperature 98, respiratory rate 20, and oxygen saturation was 98%. HEAD, EYES, EARS, NOSE, AND THROAT: Normocephalic, atraumatic. NECK: Supple. HEART: Showed normal first and second heart sounds. No gallop or murmur. CHEST: Clear to auscultation. No crepitation or rhonchi. ABDOMEN: Distended, soft, nontender. No guarding or rigidity. No organomegaly. All hernial orifice intact. Bowel sounds normal. NEUROLOGIC: She was awake, alert, responding appropriately. All cranial nerves intact. EXTREMITIES: She moves extremities without difficulty. She ambulates without assistance or assistive devices. LABORATORY DATA: Her lab work showed a white cell count of 14,200, hemoglobin 13, hematocrit 39, MCV 89, and platelet count 291,000. Her serum sodium 138, potassium 4, chloride 107, bicarbonate 22, anion gap of 12, BUN 13, creatinine 1, estimated GFR was 68 mL per minute. Her glucose 125, calcium was 9.1. Total bilirubin, AST, ALT, alkaline phosphatase were normal. Total protein 7.6, albumin was 3.4. Her prothrombin time, INR, aPTT, and D-dimer are all normal. Urinalysis was unremarkable and toxic screen was negative. DISCHARGE MEDICATIONS: She was discharged home to continue on following medications: Diphenhydramine 50 mg at bedtime as needed, cetirizine 10 mg once a day, ipratropium bromide, albuterol sulfate for DuoNeb twice a day, albuterol sulfate inhaler 1 puff every 4 hours, buspirone 10 mg twice a day, Flovent 44 mcg 2 puffs twice a day, montelukast 10 mg once a day, magnesium oxide 250 mg once a day, Psyllium husk 520 mg once a day, ondansetron 4 mg every 6 hours, probiotic 1 tablet once a day, prednisolone sodium phosphate 15 mg/5 ml to take 10 mL daily, 1 tablet once a day, and melatonin 10 mg at bedtime. FINAL DISCHARGE DIAGNOSIS: Acute asthma exacerbation. KAYLA TJEEDA MD DR: VINICIO/ga JOB#: [id number] / [id number]
--- NOTE | 2020-06-29 06:17 | EKG ---
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
== END 2020-06-24 14:28 | disposition home or self-care (01) | DRG 202 ==
LOC: ER 17:31 → 1 SOUTH 18:30
PROVIDERS: ADMIT Internal Medicine; ATTEND Internal Medicine
DX: J45.901 Unspecified asthma with (acute) exacerbation (principal); R65.10 Systemic inflammatory response syndrome (SIRS) of non-infectious origin without acute organ dysfunction; D84.9 Immunodeficiency, unspecified; Z90.49 Acquired absence of other specified parts of digestive tract; Z88.8 Allergy status to other drugs, medicaments and biological substances; Z79.899 Other long term (current) drug therapy; Z85.6 Personal history of leukemia; Z82.5 Family history of asthma and other chronic lower respiratory diseases; Z82.49 Family history of ischemic heart disease and other diseases of the circulatory system; B34.9 Viral infection, unspecified; E78.00 Pure hypercholesterolemia, unspecified; M94.0 Chondrocostal junction syndrome [Tietze]; K52.9 Noninfective gastroenteritis and colitis, unspecified; Z88.2 Allergy status to sulfonamides
CPT/HCPCS: 36415; 71045; 80048; 80053; 80076; 80307; 81001; 81025; 82550; 83690; 83735; 83880; 84443; 84484; 85025; 85027; 85379; 85610; 85730; 86140; 87040; 93005; 94640; 96365; 96372; J0456; J0696; J1650; J2920; J2930; J7120; 99285-25

== ENCOUNTER 2020-09-14 17:20 | Emergency (ER) | payer BC ==
[~2020-09-14] VITALS: Ht 162.6 cm; Wt 72.7 kg
[~2020-09-14 17:20] MED LIST changes: +BUSP10TA PO; +CETI10TA74 PO; +DIPH25CA58 PO; +L.AC1CAP6 PO; +MAGN250T10 PO; +MELA10CA PO; +MONT10TA80 PO; +ONDA4TAB7 PO; +PREN1TAB58 PO; +PSYL0.5215 PO
[2020-09-14] MEDS ORDERED: CONTRAST GIVEN. MC PRN (18:45)
[2020-09-14] MEDS ORDERED: IOHEXOL 300 MG/ML 75 ML VIAL. IV ONE (18:45)
--- NOTE | 2020-09-14 18:49 | PHYS DOC ---
Past History Past Medical History: Asthma Additional Past Medical Histor: Vitamin D defeciency, iron defeciency, Emery- Nicolas, colitis esinophilic, Past Surgical History: Appendectomy, Cholecystectomy Additional Past Surgical Histo: hernia repair Smoking: Non-smoker Alcohol Use: None Drug Use: None General Adult EDM: Chief Complaint: GROIN PAIN HPI: HPI: Patient is a 25-year-old female who presents with left-sided groin pain. Patient states 2 days ago she gone to the bathroom when she heard a "pop sound". States she has had pain since in her groin. "I am concerned it is and in the inguinal hernia, I had an umbilical hernia in January that I had to have surgically fixed". Patient denies nausea, vomiting. Review of Systems: Review of Systems: Constitutional: Denies fever or chills Eyes: Denies change in visual acuity HENT: Denies nasal congestion or sore throat Respiratory: Denies cough or shortness of breath Cardiovascular: Denies chest pain or edema GI: Denies abdominal pain, nausea, vomiting, bloody stools or diarrhea : Denies dysuria Musculoskeletal: Denies back pain or joint pain Integument: Denies rash Neurologic: Denies headache, focal weakness or sensory changes Endocrine: Denies polyuria or polydipsia Lymphatic: Denies swollen glands Psychiatric: Denies depression or anxiety Current Medications: Current Meds: Current Medications Medications (Trade) Dose Ordered Sig/Syd Start Time Stop Time Status Last Admin Dose Admin Info (Do NOT chart on this entry -- for MONITORING) 1 each PRN DAILY PRN 09/14/20 18:45 09/16/20 18:44 Iohexol (Omnipaque 300 Mg/ml) 75 ml 1X ONCE 09/14/20 18:45 09/14/20 18:46 DC Allergies: Allergies: Allergies Coded Allergies Type Severity Reaction Last Updated Verified Sulfa (Sulfonamide Antibiotics) Allergy Intermediate 09/14/20 Yes prednisone Adverse Reaction Mild N/V 09/14/20 Yes Physical Exam: PE: Constitutional: Well developed, well nourished, no acute distress, non-toxic appearance. [] HENT: Normocephalic, atraumatic, bilateral external ears normal, oropharynx moist, no oral exudates, nose normal. [] Eyes: PERRLA, EOMI, conjunctiva normal, no discharge. [] Neck: Normal range of motion, no tenderness, supple, no stridor. [] Cardiovascular:Heart rate regular rhythm, no murmur [] Lungs & Thorax: Bilateral breath sounds clear to auscultation [] Abdomen: Bowel sounds normal, soft, no tenderness, no masses, no pulsatile m asses. [] Skin: Warm, dry, no erythema, no rash. [] Back: No tenderness, no CVA tenderness. [] Extremities: No tenderness, no cyanosis, no clubbing, ROM intact, no edema. [] Neurologic: Alert and oriented X 3, normal motor function, normal sensory function, no focal deficits noted. [] Psychologic: Affect normal, judgement normal, mood normal. [] Current Patient Data: Labs: Laboratory Tests Test 09/14/20 18:38 POC Urine HCG, Qualitative hcg negative (Negative) Vital Signs: Vital Signs Date Time Temp Pulse Resp B/P (MAP) Pulse Ox O2 Delivery O2 Flow Rate FiO2 09/14/20 17:55 98.6 96 128/85 (99) 100 EKG: EKG: [] Radiology/Procedures: Radiology/Procedures: []EXAM: CT Abdomen and Pelvis with IV contrast CLINICAL HISTORY: Groin pain. COMPARISON: none TECHNIQUE: Helical CT of the abdomen and pelvis was performed following the administration of IV contrast. Axial, coronal and sagittal reformatted images were generated. ---PQRS compliance statement - One or more of the following individualized dose reduction techniques were utilized for this study: 1. Automated exposure control 2. Adjustment of the mA and/or kV according to patient size 3. Use of iterative reconstruction technique--- FINDINGS: Lower chest: Lung bases are clear Abdomen and pelvis: No focal liver lesion. Accounting for postcholecystectomy change, no biliary ductal dilatation. Spleen is unremarkable. Adrenal glands are normal. Pancreas is unremarkable. Symmetric nephrograms. No focal renal lesion. No hydronephrosis. There has been an appendectomy. Moderate colonic stool content is seen. No small or large bowel dilatation. No bowel obstruction. Bladder is unremarkable. Uteru s and adnexa are grossly unremarkable. No abdominal or pelvic ascites. No abdominal or pelvic lymphadenopathy. Abdominal wall is grossly unremarkable aside from umbilical piercing. Bones: No aggressive osseous lesion is seen. IMPRESSION: 1. Etiology of the patient's groin pain is not definitively identified. No inguinal lymphadenopathy or mass. 2. Accounting for postcholecystectomy change, no biliary ductal dilatation. 3. No bowel obstruction. There has been an appendectomy. 4. Moderate colonic stool content can be correlated for possible constipation. Electronically signed by: Nickolas Morocho MD (09/14/2020 7:36 PM) [facility] Heart Score: Risk Factors: Risk Factors: DM, Current or recent (<one month) smoker, HTN, HLP, family history of CAD, obesity. Risk Scores: Score 0 - 3: 2.5% MACE over next 6 weeks - Discharge Home Score 4 - 6: 20.3% MACE over next 6 weeks - Admit for Clinical Observation Score 7 - 10: 72.7% MACE over next 6 weeks - Early Invasive Strategies Course & Med Decision Making: Course & Med Decision Making Pertinent Labs and Imaging studies reviewed. (See chart for details) []Patient is a 25-year-old female who presents with left-sided groin pain. Patient states 2 days ago she gone to the bathroom when she heard a "pop sound". States she has had pain since in her groin. "I am concerned it is and in the inguinal hernia, I had an umbilical hernia in January that I had to have surgically fixed". Patient denies nausea, vomiting. We will order CT of abdomen and pelvis with contrast to rule out an inguinal hernia. CT abdomen Pelvis: 1. Etiology of the patient's groin pain is not definitively identified. No inguinal lymphadenopathy or mass. 2. Accounting for postcholecystectomy change, no biliary ductal dilatation. 3. No bowel obstruction. There has been an appendectomy. 4. Moderate colonic stool content can be correlated for possible constipation. Will discharge home. Instruct patient to increase fiber and fluid intake.Take Miralax at home for constipation. Dragon Disclaimer: Dragon Disclaimer: This electronic medical record was generated, in whole or in part, using a voice recognition dictation system. Departure Departure: Impression: Primary Impression: Constipation Qualified Codes: K59.00 - Constipation, unspecified Disposition: 01 DC HOME SELF CARE/HOMELESS Condition: GOOD Referrals: JOEL YU PAC (PCP) Patient Instructions: Constipation, Adult, [id number] Additional Instructions: EMERGENCY DEPARTMENT GENERAL DISCHARGE INSTRUCTIONS Thank you for coming to [facility] (ED) today and trusting us with you care. We trust that you had a positivie experience in our Emergency Department. If you wish to speak to the department management, you may call the director at [phone]. YOUR FOLLOW UP INSTRUCTIONS ARE FOLLOWS: 1. Do you have a private Doctor? If you do not have a private doctor, please ask for a resource list of physicians or clinics that may be able to assist you with follow up care. 2. The Emergency Physician has interpreted your x-rays. The X-Ray specialist will also review them. If there is a change in the findings, you will be notified in 48 hours when at all possible. 3. A lab test or culture has been done, your results will be reviewed and you will be notified if you need a change in treatment. ADDITIONAL INSTRUCTIONS AND INFORMATION: 1. Your care today has been supervised by a physician who is specially trained in emergency care. Many problems require more than one evaluation for a complete diagnosis and treatment. We recommend that you schedule your follow up appointment as recommended to ensure complete treatment of you illness or injury. If you are unable to obtain follow up care and continue to have a problem, or if your condition worsens, we recommend that you return to the ED. 2. We are not able to safely determine your condition over the phone nor are we able to give sound medical advice over the phone. For these safety reasons, if you call for medical advice we will ask you to come to the ED for further evaluation. 3. If you have any questions regarding these discharge instructions please call the ED at [phone]. SAFETY INFORMATION: In the interest of safety, wellness, and injury prevention; we encourage you to wear your sealbelt, if you smoke; quite smoking, and we encourage family to use a p rotective helmet for bicycling and other sporting events that present an increased risk for head injury. IF YOUR SYMPTOMS WORSEN OR NEW SYMPTOMS DEVELOP, OR YOU HAVE CONCERNS ABOUT YOUR CONDITION; OR IF YOUR CONDITION WORSENS WHILE YOU ARE WAITING FOR YOUR FOLLOW UP APPOINTMENT; EITHER CONTACT YOUR PRIMARY CARE DOCTOR, THE PHYSICIAN WHOSE NAME AND NUMBER YOU WERE GIVEN, OR RETURN TO THE ED IMMEDIATELY. BROOKE HOLLY APRN Sep 14, 2020 18:49
[2020-09-14 19:37] LABS: BASO % 1 % (0-3); EOS # 0.1 x10^3/uL (0.0-0.7); EOS % 1 % (0-3); HEMOGLOBIN 14.4 g/dL (12.0-15.5); LYMPH # 2.4 x10^3/uL (1.0-4.8); LYMPH % 33 % (24-48); MEAN CORPUSCULAR HEMOGLOBIN 30 pg (25-35); MEAN CORPUSCULAR HGB CONC 34 g/dL (31-37); MEAN CORPUSCULAR VOLUME 87 fL (79-100); MONO # 0.5 x10^3/uL (0.0-1.1); MONO % 7 % (0-9); NEUT # 4.4 x10^3uL (1.8-7.7); NEUT % 59 % (31-73); PLATELET COUNT 230 x10^3/uL (140-400); RED BLOOD COUNT 4.81 x10^6/uL (3.50-5.40); RED CELL DISTRIBUTION WIDTH 12.6 % (11.5-14.5); WHITE BLOOD COUNT 7.4 x10^3/uL (4.0-11.0)
--- NOTE | 2020-09-14 19:39 | RAD ---
EXAM: CT Abdomen and Pelvis with IV contrast CLINICAL HISTORY: Groin pain. COMPARISON: none TECHNIQUE: Helical CT of the abdomen and pelvis was performed following the administration of IV cont rast. Axial, coronal and sagittal reformatted images were generated. ---PQRS compliance statement - One or more of the following individualized dose reduction techniques were utilized for this study: 1. Automated exposure control 2. Adjustment of the mA and/or kV according to patient size 3. Use of iterative reconstruction technique--- FINDINGS: Lower chest: Lung bases are clear Abdomen and pelvis: No focal liver lesion. Accounting for postcholecystectomy change, no biliary ductal dilatation. Splee n is unremarkable. Adrenal glands are normal. Pancreas is unremarkable. Symmetric nephrograms. No foc al renal lesion. No hydronephrosis. There has been an appendectomy. Moderate colonic stool content is seen. No small or large bowel dilat ation. No bowel obstruction. Bladder is unremarkable. Uterus and adnexa are grossly unremarkable. No abdominal or pelvic ascites. No abdominal or pelvic lymphadenopathy. Abdominal wall is grossly unremarkable aside from umbilical piercing. Bones: No aggressive osseous lesion is seen. IMPRESSION: 1. Etiology of the patient's groin pain is not definitively identified. No inguinal lymphadenopathy or mass. 2. Accounting for postcholecystectomy change, no biliary ductal dilatation. 3. No bowel obstruction. There has been an appendectomy. 4. Moderate colonic stool content can be correlated for possible constipation. Electronically signed by: Nickolas Morocho MD (09/14/2020 7:36 PM) [facility]
[2020-09-14 19:45] LABS: CALCIUM 8.7 mg/dL (8.5-10.1); GFR 68.1; POTASSIUM 3.4 mmol/L (3.5-5.1)
[2020-09-14 19:48] LABS: BILIRUBIN,URINE NEG (NEG); CLARITY,URINE CLEAR; COLOR,URINE YELLOW; GLUCOSE,URINE NEG (NEG); NITRITE,URINE NEG (NEG); UROBILINOGEN,URINE 0.2 mg/dL (0.2 mg/dL)
[2020-09-14 19:50] LABS: BACTERIA,URINE 0 /HPF (0-FEW); RBC,URINE OCC /HPF (0-2); SQUAMOUS EPITHELIAL CELL,UR OCC /LPF; WBC,URINE OCC /HPF (0-4)
[2020-09-14 19:59] LABS: ALBUMIN 3.9 g/dL (3.4-5.0); ALBUMIN/GLOBULIN RATIO 1.1 (1.0-1.7); TOTAL BILIRUBIN 0.4 mg/dL (0.2-1.0); TOTAL PROTEIN 7.6 g/dL (6.4-8.2)
[2020-09-14 20:05] VITALS: BP 115/80
== END 2020-09-14 20:05 | disposition home or self-care (01) ==
LOC: ER 17:20
DX: K59.00 Constipation, unspecified (principal); R10.32 Left lower quadrant pain; R10.33 Periumbilical pain; J45.909 Unspecified asthma, uncomplicated; Z90.49 Acquired absence of other specified parts of digestive tract; Z90.89 Acquired absence of other organs; Z98.890 Other specified postprocedural states; Z88.2 Allergy status to sulfonamides; Z88.8 Allergy status to other drugs, medicaments and biological substances
CPT/HCPCS: 36415; 74177; 80053; 81001; 81025; 83880; 85025; 99285; Q9967

== ENCOUNTER 2021-02-19 20:29 | Emergency (ER) | payer BC ==
[~2021-02-19] VITALS: Ht 162.6 cm; Wt 72.3 kg
--- NOTE | 2021-02-19 20:44 | PHYS DOC ---
Past History Past Medical History: Asthma Additional Past Medical Histor: Vitamin D defeciency, iron defeciency, Emery- Nicolas, colitis esinophilic, Past Surgical History: Appendectomy, Cholecystectomy Additional Past Surgical Histo: hernia repair Smoking: Non-smoker Alcohol Use: None Drug Use: None General Adult HPI: HPI: "My leg been hurting the last two days.. here behind my knee on Lt... My mom is worried.. I have a blood clot.. Patient is a 25 year old female who presents with above hx and complaints left calf pain for the past 2 days. No history of specific injury. Remote hx of bilateral meniscus injury. The patient is on control. Patient has a family history of DVTs. Normally healthy. No recent travel. No specific ill ill contacts. Patient has past medical history of bronchial asthma, history of abscess Aquilino Nicolas virus illness, iron deficiency anemia, sending for dog colitis, nonspecific immune deficiency, sinusitis, vitamin D deficiency,. Patient has undergone cholecystectomy and umbilical hernia repair as well as appendectomy. Review of Systems: Review of Systems: Constitutional: Denies fever or chills Eyes: Denies change in visual acuity HENT: Denies nasal congestion or sore throat Respiratory: Denies cough or shortness of breath Cardiovascular: Denies chest pain or edema GI: Denies abdominal pain, nausea, vomiting, bloody stools or diarrhea : Denies dysuria Musculoskeletal: Complains left lower leg pain Integument: Denies rash Neurologic: Denies headache, focal weakness or sensory changes Endocrine: Denies polyuria or polydipsia Lymphatic: Denies swollen glands Psychiatric: Denies depression or anxiety Family History: Family History: History of DVTs with family members, she has 2 brothers both have bronchial asthma. Does not know history of father. Mother is alive and fairly healthy Current Medications: Current Meds: See nursing for home meds Allergies: Allergies: Allergies Coded Allergies Type Severity Reaction Last Updated Verified Sulfa (Sulfonamide Antibiotics) Allergy Intermediate 09/14/20 Yes prednisone Adverse Reaction Mild N/V 09/14/20 Yes Physical Exam: PE: Constitutional: Well developed, well nourished, no acute distress, non-toxic appearance. [] HENT: Normocephalic, atraumatic, bilateral external ears normal, oropharynx moist, no oral exudates, nose normal. [] Eyes: PERRLA, EOMI, conjunctiva normal, no discharge. [] Neck: Normal range of motion, no tenderness, supple, no stridor. [] Cardiovascular:Heart rate regular rhythm, no murmur [] Lungs & Thorax: Bilateral breath sounds clear to auscultation [] Abdomen: Bowel sounds normal, soft, no tenderness, no masses, no pulsatile masses. [] Old abdomen surgical scars Skin: Warm, dry, no erythema, no rash. [] Back: No tenderness, no CVA tenderness. [] Extremities. Left lower leg tenderness, no cyanosis, no clubbing, ROM intact, no edema. [No true cording found.). Some fullness to posterior knee compartment ? King cyst?. Neurologic: Alert and oriented X 3, normal motor function, normal sensory function, no focal deficits noted. [] Psychologic: Affect normal, judgement normal, mood normal. [] EKG: EKG: [] Radiology/Procedures: Radiology/Procedures: [] Heart Score: C/O Chest Pain: N/A Risk Factors: Risk Factors: DM, Current or recent (<one month) smoker, HTN, HLP, family history of CAD, obesity. Risk Scores: Score 0 - 3: 2.5% MACE over next 6 weeks - Discharge Home Score 4 - 6: 20.3% MACE over next 6 weeks - Admit for Clinical Observation Score 7 - 10: 72.7% MACE over next 6 weeks - Early Invasive Strategies Course & Med Decision Making: Course & Med Decision Making Pertinent Labs and Imaging studies reviewed. (See chart for details) Patient take Tylenol and ibuprofen as needed for discomfort. Wear Austin wrapping if it helpful. Ice packs as needed. With a negative D-dimer and symptoms for the past 2 days doubt if DVT is in the differential diagnosis. More likely this is a strain sprain or cramp type of pain in the left lower leg. Also possibility with a history of meniscus injury she has a King's cyst. Follow-up with primary care. Follow-up orthopedics. Return if any concerns. Impression: 1. Lt.lower leg pain [] Urbano Disclaimer: Urbano Disclaimer: This electronic medical record was generated, in whole or in part, using a voice recognition dictation system. Departure Departure: Referrals: JOEL YU (PCP) Urbano Disclaimer This chart was dictated in whole or in part using Voice Recognition software in a busy, high-work load, and often noisy Emergency Department environment. It may contain unintended and wholly unrecognized errors or omissions. JUANA CRUZ MD Feb 19, 2021 20:44
[2021-02-19] MEDS ORDERED: KETOROLAC 60 MG/2 ML VIAL. IM ONE (22:15)
[2021-02-19 23:33] VITALS: BP 136/72
== END 2021-02-19 23:35 | disposition home or self-care (01) ==
LOC: ER 20:29
DX: M79.662 Pain in left lower leg (principal); J45.909 Unspecified asthma, uncomplicated; Z88.2 Allergy status to sulfonamides; Z88.6 Allergy status to analgesic agent; Z90.49 Acquired absence of other specified parts of digestive tract
CPT/HCPCS: 36415; 85379; 85610; 85730; 96372; 99283; J1885

== ENCOUNTER → 2021-03-05 | Outpatient (CLI) | payer BC ==
[2021-02-19 23:33] VITALS: BP 136/72
[~2021-03-05] MED LIST changes: +IOHEXOL 240 MG/ML 50ML VIAL. ONE; +IOHEXOL 300 MG/ML 75 ML VIAL. IV ONE
--- NOTE | 2021-03-05 11:26 | RAD ---
Exam: CT abdomen/pelvis with intravenous contrast Indication: Abdominal pain, left lower quadrant pain and nausea. History of umbilical hernia repair, cholecystectomy, and appendectomy Comparison: CT abdomen pelvis 09/14/2020 Technique: Helical CT imaging performed of the abdomen and pelvis after the intravenous administratio n of contrast. Sagittal and coronal reformats were obtained. One or more of the following individualized dose reduction techniques were utilized for this examinat ion: 1. Automated exposure control 2. Adjustment of the mA and/or kV according to patient size 3. Use of iterative reconstruction technique. Findings: Lower chest: Lung bases are clear. Heart is normal in size. Liver: Normal. Gallbladder/Biliary Tree: Gallbladder surgically absent. Bile ducts are normal. Pancreas: Normal. Spleen: Normal. Adrenal Glands: Isiah. Kidneys/Ureters/Bladder: Normal. No hydronephrosis. Reproductive Organs: Uterus is anteverted. No adnexal mass. Stomach, small bowel, and colon: Stomach, small bowel, and colon are normal. Vasculature: Aorta is normal in caliber. Lymph Nodes: There is no lymphadenopathy. Peritoneum and retroperitoneum: No free fluid or free air. Bones: No acute osseous abnormality. Miscellaneous: No abdominal wall or inguinal hernia. Impression: No acute abnormality in the abdomen or pelvis. Electronically signed by: Yohana Dinero MD (03/05/2021 11:24 AM) [id number]
== END ==
LOC: CT 08:03
PROVIDERS: ATTEND Internal Medicine Gastroenterology
DX: R10.32 Left lower quadrant pain (principal); K92.1 Melena
CPT/HCPCS: 74177; Q9967

== ENCOUNTER 2021-07-10 20:29 | Emergency (ER) | payer BC ==
[~2021-07-10] VITALS: Ht 162.6 cm; Wt 72.3 kg
[~2021-07-10 20:29] MED LIST changes: -IOHEXOL 240 MG/ML 50ML VIAL. ONE; -IOHEXOL 300 MG/ML 75 ML VIAL. IV ONE
[2021-07-10] MEDS ORDERED: ALBUTEROL SULFATE 2.5 MG/3 ML NEBU. NEB ONE (21:00)
[2021-07-10] MEDS ORDERED: DEXAMETHASONE SOD PHOS 10 MG/ML VIAL. PO ONE (21:00)
[2021-07-10] MEDS: IPRATRPIUM/ALBUTEROL 0.5/2.5MG 3 ML NEBU. NEB ONE ×2 (21:14→21:24)
[2021-07-10] MEDS ORDERED: ONDANSETRON ODT 4 MG TAB.RAPDIS PO ONE (21:15)
--- NOTE | 2021-07-10 21:36 | PHYS DOC ---
Past History Past Medical History: Asthma, Other Additional Past Medical Histor: Vitamin D defeciency, iron defeciency, Emery- Nicolas, colitis esinophilic, (BROOKE HOLLY APRN) Past Surgical History: Appendectomy, Cholecystectomy Additional Past Surgical Histo: hernia repair, meniscus repair (BROOKE HOLLY APRN) Smoking: Non-smoker Alcohol Use: Occasionally Drug Use: None (BROOKE HOLLY APRN) General Adult EDM: Chief Complaint: ASTHMA HPI: HPI: Patient is a 26-year-old female who presents with asthma exacerbation. Patient states that she had shortness of breath and tightness in her chest that started this afternoon. Patient was seen by her PCP and started on Medrol Dosepak along with doxycycline for a sinus infection. Afebrile. Patient has history of asthma. (BROOKE HOLLY APRN) Review of Systems: Review of Systems: ROS At least 10 ROS systems have been reviewed and are negative except as documented in the HPI. General: Negative except as outlined in HPI above. Skin: Negative except as outlined in HPI above. HEENT: Negative except as outlined in HPI above. Neck: Negative except as outlined in HPI above. Respiratory: Negative except as outlined in HPI above.. Cardiovascular: Negative except as outlined in HPI above. Abdomen: Negative except as outlined in HPI above. : Negative except as outlined in HPI above. Back/MSK: Negative except as outlined in HPI above. Neuro: Negative except as outlined in HPI above. Psych: Negative except as outlined in HPI above. (BROOKE HOLLY APRN) Current Medications: Current Meds: Current Medications Medications (Trade) Dose Ordered Sig/Syd Start Time Stop Time Status Last Admin Dose Admin Albuterol Sulfate (Ventolin) 2.5 mg 1X ONCE 07/10/21 21:00 07/10/21 21:04 DC 07/10/21 21:08 2.5 MG Albuterol/ Ipratropium (Duoneb) 3 ml 1X ONCE 07/10/21 21:30 07/10/21 21:31 Dexamethasone Sodium Phosphate (Decadron) 10 mg 1X ONCE 07/10/21 21:00 07/10/21 21:04 DC 07/10/21 21:08 10 MG Ondansetron HCl (Zofran Odt) 4 mg 1X ONCE 07/10/21 21:15 07/10/21 21:16 DC 07/10/21 21:18 4 MG (BROOKE HOLLY APRN) Allergies: Allergies: Allergies Coded Allergies Type Severity Reaction Last Updated Verified Sulfa (Sulfonamide Antibiotics) Allergy Intermediate 09/14/20 Yes prednisone Adverse Reaction Mild N/V 09/14/20 Yes (BROOKE HOLLY APRN) Physical Exam: PE: Constitutional: Well developed, well nourished, no acute distress, non-toxic appearance. [] HENT: Normocephalic, atraumatic, bilateral external ears normal, oropharynx moist, no oral exudates, nose normal. [] Eyes: PERRLA, EOMI, conjunctiva normal, no discharge. [] Neck: Normal range of motion, no tenderness, supple, no stridor. [] Cardiovascular:Heart rate regular rhythm, no murmur [] Lungs & Thorax: Bilateral breath sounds clear to auscultation, no wheezing [] Abdomen: Bowel sounds normal, soft, no tenderness, no masses, no pulsatile masses. [] Skin: Warm, dry, no erythema, no rash. [] Back: No tenderness, no CVA tenderness. [] Extremities: No tenderness, no cyanosis, no clubbing, ROM intact, no edema. [] Neurologic: Alert and oriented X 3, normal motor function, normal sensory function, no focal deficits noted. [] Psychologic: Affect normal, judgement normal, mood normal. [] (BROOKE HOLLY APRN) Current Patient Data: Vital Signs: Vital Signs Date Time Temp Pulse Resp B/P (MAP) Pulse Ox O2 Delivery O2 Flow Rate FiO2 07/10/21 21:19 108 18 166/80 (108) 98 Room Air 07/10/21 20:30 98.4 (BROOKE HOLLY APRN) EKG: EKG: [] (BROOKE HOLLY APRN) Radiology/Procedures: Radiology/Procedures: [] (BROOKE HOLLY APRN) Heart Score: C/O Chest Pain: No Risk Factors: Risk Factors: DM, Current or recent (<one month) smoker, HTN, HLP, family history of CAD, obesity. Risk Scores: Score 0 - 3: 2.5% MACE over next 6 weeks - Discharge Home Score 4 - 6: 20.3% MACE over next 6 weeks - Admit for Clinical Observation Score 7 - 10: 72.7% MACE over next 6 weeks - Early Invasive Strategies (BROOKE HOLLY APRN) Course & Med Decision Making: Course & Med Decision Making Pertinent Labs and Imaging studies reviewed. (See chart for details) 26-year-old female presents with chest tightness and wheezing. Patient's history of asthma and was seen by her PCP earlier today and started on Medrol Dosepak and doxycycline. Patient unable to take doxycycline due to making her nauseous. Patient reports that she has been using her albuterol at home. No wheezing heard on physical exam. Patient given DuoNeb treatment. Dexamethasone. Zofran for nausea. Patient states that her symptoms have improved after DuoNeb treatment and Zofran. Patient still reporting some chest tightness but is requesting to be discharged and use her breathing treatments at home. Discussed with patient her nausea and vomiting most likely resulted from taking doxycycline on a empty stomach. Patient requesting a alternate antibiotic. Patient given Augmentin for sinusitis and instructed to discontinue doxycycline. Patient also sent home with Zofran for nausea and albuterol inhaler. Patient states that she has plenty of medication for her breathing treatments at home. Patient is hemodynamically stable upon disposition. Patient's appreciative and agrees with discharge plan. (BROOKE HOLLY APRN) [place]ano Disclaimer: Urbano Disclaimer: This electronic medical record was generated, in whole or in part, using a voice recognition dictation system. (BROOKE HOLLY APRN) Departure Departure: Impression: Primary Impression: Acute asthma exacerbation Qualified Codes: J45.21 - Mild intermittent asthma with (acute) exacerbation Additional Impression: Nausea Disposition: 01 HOME / SELF CARE / HOMELESS Condition: STABLE Referrals: JOEL YU PAC (PCP) Patient Instructions: Asthma, Adult, [id number] Additional Instructions: You were seen in the emergency room for acute asthma exacerbation. You were given a breathing treatment along with dexamethasone to treat your chest tightness. I am changing your antibiotic to Augmentin to treat your sinus infection. Please continue to antibiotic as directed. Follow-up with your PCP in the next few days if symptoms do not improve. EMERGENCY DEPARTMENT GENERAL DISCHARGE INSTRUCTIONS Thank you for coming to [facility] (ED) today and trusting us with you care. We trust that you had a positivie experience in our Emergency Department. If you wish to speak to the department management, you may call the director at [phone]. YOUR FOLLOW UP INSTRUCTIONS ARE FOLLOWS: 1. Do you have a private Doctor? If you do not have a private doctor, please ask for a resource list of physicians or clinics that may be able to assist you with follow up care. 2. The Emergency Physician has interpreted your x-rays. The X-Ray specialist will also review them. If there is a change in the findings, you will be notified in 48 hours when at all possible. 3. A lab test or culture has been done, your results will be reviewed and you will be notified if you need a change in treatment. ADDITIONAL INSTRUCTIONS AND INFORMATION: 1. Your care today has been supervised by a physician who is specially trained in emergency care. Many problems require more than one evaluation for a complete diagnosis and treatment. We recommend that you schedule your follow up appointment as recommended to ensure complete treatment of you illness or injury. If you are unable to obtain follow up care and continue to have a problem, or if your condition worsens, we recommend that you return to the ED. 2. We are not able to safely determine your condition over the phone nor are we able to give sound medical advice over the phone. For these safety reasons, if you call for medical advice we will ask you to come to the ED for further evaluation. 3. If you have any questions regarding these discharge instructions please call the ED at [phone]. SAFETY INFORMATION: In the interest of safety, wellness, and injury prevention; we encourage you to wear your sealbelt, if you smoke; quite smoking, and we encourage family to use a protective helmet for bicycling and other sporting events that present an increased risk for head injury. IF YOUR SYMPTOMS WORSEN OR NEW SYMPTOMS DEVELOP, OR YOU HAVE CONCERNS ABOUT YOUR CONDITION; OR IF YOUR CONDITION WORSENS WHILE YOU ARE WAITING FOR YOUR FOLLOW UP APPOINTMENT; EITHER CONTACT YOUR PRIMARY CARE DOCTOR, THE PHYSICIAN WHOSE NAME AND NUMBER YOU WERE GIVEN, OR RETURN TO THE ED IMMEDIATELY. Scripts Albuterol Sulfate (PROAIR HFA INHALER) 8.5 Gm Hfa.aer.ad 2 PUFF IH PRN Q4-6HRS PRN for wheezing for 21 Days, #1 INHALER 0 Refills as needed for wheezing Prov: BROOKE HOLLY FIRE LOOKOUT 07/10/21 Amoxicillin/Potassium Clav (AUGMENTIN 875-125 TABLET) 1 Each Tablet 1 TAB PO BID for sinusitis for 10 Days, #19 TAB 0 Refills Prov: BROOKE HOLLY APRN 07/10/21 Ondansetron Hcl (ZOFRAN) 4 Mg Tablet 4 MG PO TID PRN PRN for NAUSEA, #9 TAB Prov: BROOKE HOLLY APRN 07/10/21 Attending Signature Attending Signature I have reviewed the PA/BUSINESS PROGRAMMER's note and plan of care. I was available for consultation as needed during the patient's visit in the emergency department. I agree with the clinical impression, plan, and disposition. (FROY WEAVER DO) BROOKE HOLLY APRN Jul 10, 2021 21:36 FROY WEAVER DO Jul 11, 2021 02:03
[2021-07-10 22:47] VITALS: BP 143/87
[2021-07-10] MEDS ORDERED: ONDA4TAB7 PO (23:16)
[2021-07-10] MEDS ORDERED: ALBU2.5V8 IH (23:16)
[2021-07-10] MEDS ORDERED: AMOX1TAB61 PO (23:16)
[2021-07-10] MEDS ORDERED: AMOXICILLIN/K CLAV 875/125MG TABLET. PO ONE (23:45)
== END 2021-07-10 23:37 | disposition home or self-care (01) ==
LOC: ER 20:29
DX: J45.21 Mild intermittent asthma with (acute) exacerbation (principal); R11.0 Nausea; Z88.2 Allergy status to sulfonamides; Z88.8 Allergy status to other drugs, medicaments and biological substances
CPT/HCPCS: 94640; 99284; J1100; J7613; Q0162

== ENCOUNTER 2021-11-03 23:58 | Emergency (ER) | payer BC, OTHER ==
[~2021-11-03] VITALS: Ht 162.6 cm; Wt 78.6 kg
[2021-11-04 00:25] VITALS: BP 123/51
--- NOTE | 2021-11-04 00:27 | PHYS DOC ---
Past History Past Medical History: Asthma, Other Additional Past Medical Histor: Vitamin D defeciency, iron defeciency, Emery- Nicolas, colitis esinophilic, Past Surgical History: Appendectomy, Cholecystectomy Additional Past Surgical Histo: hernia repair, meniscus repair Smoking: Non-smoker Alcohol Use: Occasionally Drug Use: None General Adult EDM: Chief Complaint: LACERATION/AVULSION HPI: HPI: ".. I had taken my Ambien earlier... Got in the shower... And then I slipped....'" I slipped and hit my head on space heater.. " "It didnt knock me out.. ".. " But it would not stop bleeding.. ." Patient is a 26 year old female who presents with above hx and complaints of 5 cm laceration top of scalp. No upper neck tenderness. Pt. states it been 10 yrs since last tetanus.. Patient denies any loss consciousness. No history of immunosuppression. No history of travel. No history of ill contacts. Normally healthy. Review of Systems: Review of Systems: Constitutional: Denies fever or chills Eyes: Denies change in visual acuity HENT: Complains of laceration Respiratory: Denies cough or shortness of breath Cardiovascular: Denies chest pain or edema GI: Denies abdominal pain, nausea, vomiting, bloody stools or diarrhea : Denies dysuria Musculoskeletal: Denies back pain or joint pain Integument: Denies rash Neurologic: Denies headache, focal weakness or sensory changes Endocrine: Denies polyuria or polydipsia Lymphatic: Denies swollen glands Psychiatric: Denies depression or anxiety Family History: Family History: Noncontributory to presentation Current Medications: Current Meds: See nursing for home meds Allergies: Allergies: Allergies Coded Allergies Type Severity Reaction Last Updated Verified Sulfa (Sulfonamide Antibiotics) Allergy Intermediate 09/14/20 Yes prednisone Adverse Reaction Mild N/V 09/14/20 Yes Physical Exam: PE: Constitutional: , no acute distress, non-toxic appearance. [] HENT: Normocephalic, 5 cm laceration to top of scalp, bilateral external ears normal, oropharynx moist, no oral exudates, nose normal. [] Eyes: PERRLA, EOMI, conjunctiva normal, no discharge. Glasses Neck: Normal range of motion, no tenderness, supple, no stridor. [] Cardiovascular:Heart rate regular rhythm, no murmur [] Lungs & Thorax: Bilateral breath sounds clear to auscultation [] Abdomen: Bowel sounds normal, soft, no tenderness, no masses, no pulsatile masses. [] Skin: Warm, dry, no erythema, no rash. [] Back: No tenderness, no CVA tenderness. [] Extremities: No tenderness, no cyanosis, no clubbing, ROM intact, no edema. [] Neurologic: Alert and oriented X 3, normal motor function, normal sensory function, no focal deficits noted. DTRs +2 patella. 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 No drift. [] Psychologic: Affect normal, judgement normal, mood normal. [] EKG: EKG: [] Radiology/Procedures: Radiology/Procedures: [] Heart Score: C/O Chest Pain: N/A Risk Factors: Risk Factors: DM, Current or recent (<one month) smoker, HTN, HLP, family h istory of CAD, obesity. Risk Scores: Score 0 - 3: 2.5% MACE over next 6 weeks - Discharge Home Score 4 - 6: 20.3% MACE over next 6 weeks - Admit for Clinical Observation Score 7 - 10: 72.7% MACE over next 6 weeks - Early Invasive Strategies Course & Med Decision Making: Course & Med Decision Making Pertinent Labs and Imaging studies reviewed. (See chart for details) Procedure note-laceration repair-5 cm laceration top of scalp-area cleaned with peroxide extensively. Irrigate laceration saline. Injected lidocaine 1% along suture line. We irrigated laceration. Applied 8 lewis. Patient keep area clean and dry. May use peroxide to clean hair and wound. Apply Polysporin 4 times a day. Return if any concerns. Patient's tetanus was updated. Sutures be removed in 10 days. Return if any concerns. Impression; 1. 5 cm head laceration scalp [] Dragon Disclaimer: Dragon Disclaimer: This electronic medical record was generated, in whole or in part, using a voice recognition dictation system. Departure Departure: Referrals: JOEL YU (PCP) [place]ano Disclaimer This chart was dictated in whole or in part using Voice Recognition software in a busy, high-work load, and often noisy Emergency Department environment. It may contain unintended and wholly unrecognized errors or omissions. Dragon Disclaimer This chart was dictated in whole or in part using Voice Recognition software in a busy, high-work load, and often noisy Emergency Department environment. It may contain unintended and wholly unrecognized errors or omissions. JUANA CRUZ MD Nov 04, 2021 00:27
[2021-11-04] MEDS ORDERED: DIPHTH,PERTUSS(ACELL),TET TOX 0.5 ML DISP.SYRIN. VAX IM ONE ×2 (00:31→00:45)
== END 2021-11-04 00:39 | disposition home or self-care (01) ==
LOC: ER 23:58
DX: S01.01XA Laceration without foreign body of scalp, initial encounter (principal); J45.909 Unspecified asthma, uncomplicated; Z88.2 Allergy status to sulfonamides; Z88.8 Allergy status to other drugs, medicaments and biological substances; W01.198A Fall on same level from slipping, tripping and stumbling with subsequent striking against other object, initial encounter; Y93.89 Activity, other specified; Y92.89 Other specified places as the place of occurrence of the external cause; Y99.8 Other external cause status
CPT/HCPCS: 12002; 90471; 90715; 99283

== ENCOUNTER 2021-12-03 10:09 | Emergency (ER) | payer OTHER ==
[~2021-12-03] VITALS: Ht 162.6 cm; Wt 81.8 kg
--- NOTE | 2021-12-03 10:37 | PHYS DOC ---
Past History Past Medical History: Asthma, Other Additional Past Medical Histor: Vitamin D defeciency, iron defeciency, Emery- Nicolas, colitis esinophilic, (JASMIN HERNANDEZ APRN) Past Surgical History: Appendectomy, Cholecystectomy Additional Past Surgical Histo: hernia repair, meniscus repair (JASMIN HERNANDEZ APRN) Smoking: Non-smoker Alcohol Use: Occasionally Drug Use: None (JASMIN HERNANDEZ APRN) General Adult EDM: Chief Complaint: NAUSEA/VOMITING/DIARRHEA HPI: HPI: Patient is a 26-year-old female who presents to the emergency department with nausea, vomiting, diarrhea and epigastric abdominal pain that started yesterday. Patient reports that she was feeling nauseous yesterday but then around 4:00 this morning she started vomiting. She reports taking Zofran at 7:00 this morning. She reports an epigastric soreness pain that she attributes to the frequent vomiting that she rates 3 out of 10. Patient reports that she has a history of cyclical vomiting and usually she needs IV fluids and nausea medication. Patient's last menstrual period was 6 years ago she is on the Depo. She has a history of a cholecystectomy, appendectomy and hernia repair. Patient went to work this morning and had a negative Covid test. 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 Patient is tachycardic in the emergency department with a heart rate of 136, she reports that she is normally tachycardic with a heart rate of around 120. Patient reports chronic loose stools due to irritable bowel but reports that they have not increased since yesterday. Patient denies any urinary symptoms, flank pain, fevers, sick exposure, recent travel, blood in her stools. (JASMIN HERNANDEZ APRN) Review of Systems: Review of Systems: Constitutional: See HPI GI: See HPI : See HPI Musculoskeletal: See HPI (JASMIN HERNANDEZ APRN) Allergies: Allergies: Allergies Coded Allergies Type Severity Reaction Last Updated Verified Sulfa (Sulfonamide Antibiotics) Allergy Intermediate 09/14/20 Yes prednisone Adverse Reaction Mild N/V 09/14/20 Yes (JASMIN HERNANDEZ APRN) Physical Exam: PE: Constitutional: Well developed, well nourished, no acute distress, non-toxic appearance. [] HENT: Normocephalic, atraumatic, bilateral external ears normal, oropharynx moist, no oral exudates, nose normal. [] Eyes: PERRL, EOMI, conjunctiva normal, no discharge. [] Neck: Normal range of motion, no stridor Cardiovascular:Heart rate tachycardic rhythm, no murmur [] Lungs & Thorax: Bilateral breath sounds clear to auscultation [] Abdomen: Bowel sounds normal, soft, mild tenderness with palpation to epigastric region, no abdominal guarding or rigidity, no masses, no pulsatile masses. [] Skin: Warm, dry, no erythema, no rash. [] Back: No tenderness, no CVA tenderness. [] Extremities: No tenderness, no cyanosis, no clubbing, ROM intact, no edema. [] Neurologic: Alert and oriented X 3, normal motor function, normal sensory function, no focal deficits noted. [] Psychologic: Affect normal, judgement normal, mood normal. [] (JASMIN HERNANDEZ APRN) Current Patient Data: Labs: Laboratory Tests Test 12/03/21 09:43 12/03/21 10:30 12/03/21 10:40 Bedside Urine HCG, Qualitative hcg negative Urine Collection Type Unknown Urine Color Yellow Urine Clarity Clear Urine pH 5.5 Urine Specific [place] >=1.030 Urine Protein Neg Urine Glucose (UA) Neg mg/dL Urine Ketones (Stick) Neg mg/dL Urine Blood Neg Urine Nitrite Neg Urine Bilirubin Neg Urine Urobilinogen Dipstick 0.2 mg/dL Urine Leukocyte Esterase Neg Urine RBC 1-2 /HPF Urine WBC 1-4 /HPF Urine Squamous Epithelial Cells Mod /LPF Urine Bacteria Mod /HPF Urine Mucus Mod /LPF Urine Yeast Present /HPF White Blood Count 9.2 x10^3/uL Red Blood Count 5.16 x10^6/uL Hemoglobin 15.5 g/dL Hematocrit 45.5 % Mean Corpuscular Volume 88 fL Mean Corpuscular Hemoglobin 30 pg Mean Corpuscular Hemoglobin Concent 34 g/dL Red Cell Distribution Width 12.6 % Platelet Count 240 x10^3/uL Neutrophils (%) (Auto) 92 % Lymphocytes (%) (Auto) 5 % Monocytes (%) (Auto) 3 % Eosinophils (%) (Auto) 0 % Basophils (%) (Auto) 1 % Neutrophils # (Auto) 8.5 x10^3uL Lymphocytes # (Auto) 0.4 x10^3/uL Monocytes # (Auto) 0.3 x10^3/uL Eosinophils # (Auto) 0.0 x10^3/uL Basophils # (Auto) 0.0 x10^3/uL Sodium Level 138 mmol/L Potassium Level 3.8 mmol/L Chloride Level 102 mmol/L Carbon Dioxide Level 21 mmol/L Anion Gap 15 Blood Urea Nitrogen 12 mg/dL Creatinine 0.9 mg/dL Estimated GFR (Cockcroft-Gault) 76.3 BUN/Creatinine Ratio 13 Glucose Level 108 mg/dL Calcium Level 8.8 mg/dL Total Bilirubin 1.1 mg/dL Aspartate Amino Transf (AST/SGOT) 25 U/L Alanine Aminotransferase (ALT/SGPT) 68 U/L Alkaline Phosphatase 81 U/L Total Protein 7.9 g/dL Albumin 4.2 g/dL Albumin/Globulin Ratio 1.1 Lipase 63 U/L Current Medications Medications (Trade) Dose Ordered Sig/Syd Route PRN Reason Start Time Stop Time Status Last Admin Dose Admin Sodium Chloride 1,000 ml @ 1,000 mls/hr 1X ONCE IV 12/03/21 10:30 12/03/21 11:29 DC 12/03/21 10:44 Ondansetron HCl (Zofran) 4 mg 1X ONCE IVP 12/03/21 10:30 12/03/21 10:35 DC 12/03/21 10:46 Famotidine (Pepcid Vial) 20 mg 1X ONCE IVP 12/03/21 10:30 12/03/21 10:35 DC 12/03/21 10:47 Vital Signs: Vital Signs Date Time Temp Pulse Resp B/P (MAP) Pulse Ox O2 Delivery O2 Flow Rate FiO2 12/03/21 10:15 98.6 136 20 141/87 (105) 96 Room Air (JASMIN HERNANDEZ APRN) EKG: EKG: [] (JASMIN HERNANDEZ APRN) Radiology/Procedures: Radiology/Procedures: [] (JASMIN HERNANDEZ APRN) Heart Score: C/O Chest Pain: N/A Risk Factors: Risk Factors: DM, Current or recent (<one month) smoker, HTN, HLP, family history of CAD, obesity. Risk Scores: Score 0 - 3: 2.5% MACE over next 6 weeks - Discharge Home Score 4 - 6: 20.3% MACE over next 6 weeks - Admit for Clinical Observation Score 7 - 10: 72.7% MACE over next 6 weeks - Early Invasive Strategies (JASMIN HERNANDEZ APRN) Course & Med Decision Making: Course & Med Decision Making Pertinent Labs and Imaging studies reviewed. (See chart for details) [] Patient presents to the emergency department with nausea, vomiting and epigastric pain. Patient reports she has a history of cyclic vomiting and usually needs IV nausea medication and fluids. Work-up in the ER consisted of blood work including lipase, urinalysis/urine . Patient was tachycardic in the emergency department with a heart rate of 136. She will be treated with IV fluids, nausea medication and Pepcid. She was also given a GI cocktail. She is able to tolerate oral intake. Patient has not vomited while being in the emergency department. Blood work unremarkable. UA shows uti with wbc, and moderate bacteria. She will be treated with abx. patients vital signs have improved in ER and her hr is 107- 112. I discussed with patient all findings and diagnostic testing as well as the need to follow-up with PCP for further evaluation and treatment or return to the ER if any new or worsening symptoms. Strict return precautions were also discussed at length. Patient voiced understanding and agreement with the plan. Patient is hemodynamically stable at the time of disposition. (JASMIN HERNANDEZ APRN) Course & Med Decision Making Did not see patient. Did not discuss patient with FAMILY LAWYER. Generally agree with FAMILY LAWYER's work-up and disposition per note (WILLY PITTMAN MD) Dragon Disclaimer: Dragon Disclaimer: This electronic medical record was generated, in whole or in part, using a voice recognition dictation system. (JASMIN HERNANDEZ APRN) Departure Departure: Impression: Primary Impression: Nausea & vomiting Qualified Codes: R11.2 - Nausea with vomiting, unspecified Additional Impression: Urinary tract infection Qualified Codes: N30.00 - Acute cystitis without hematuria Disposition: HOME / SELF CARE / HOMELESS Condition: GOOD Referrals: JOEL YU PAC (PCP) Patient Instructions: Nausea and Vomiting, Urinary Tract Infection Additional Instructions: You were seen in the emergency department today for nausea and vomiting. You were noted to have a urinary tract infection which will be treated with an antibiotic. Please start and finish the antibiotic completely. Increase your fluids. Avoid bladder irritants like caffeine, sugary beverages or alcohol. Please take Zofran as needed for nausea. You can also take Pepcid [id number] as directed to help with the upper abdominal pain that you are experiencing. Follow-up with your primary care provider tomorrow regarding your ER visit. Return to the emergency department if you develop intractable nausea or vomiting, high fevers refractory to treatment, abdominal pain, back pain, blood in your stools or vomit. Scripts Cephalexin (KEFLEX) 500 Mg Capsule 1 CAP PO BID for uti for 7 Days, #14 CAP 0 Refills Prov: JASMIN HERNANDEZ APRN 12/03/21 Ondansetron (ONDANSETRON ODT) 4 Mg Tab.rapdis 1 TAB PO PRN Q6-8HRS for nausea for 5 Days, #16 TAB 0 Refills Prov: JASMIN HERNANDEZ APRN 12/03/21 JASMIN HERNANDEZ APRN Dec 03, 2021 10:37 WILLY PITTMAN MD Dec 03, 2021 12:18
[2021-12-03] MEDS: IV NORMAL SALINE 1,000ML 1,000 ML IV ONE (10:44)
[2021-12-03] MEDS: ONDANSETRON PF 4 MG/2 ML VIAL. IVP ONE (10:46)
[2021-12-03] MEDS: FAMOTIDINE 20 MG/2 ML VIAL IVP ONE (10:47)
[2021-12-03 11:12] LABS: BASO % 1 % (0-3); EOS % 0 % (0-3); HEMATOCRIT 45.5 % (36.0-47.0); HEMOGLOBIN 15.5 g/dL (12.0-15.5); LYMPH # 0.4 x10^3/uL (1.0-4.8); LYMPH % 5 % (24-48); MEAN CORPUSCULAR HEMOGLOBIN 30 pg (25-35); MEAN CORPUSCULAR HGB CONC 34 g/dL (31-37); MEAN CORPUSCULAR VOLUME 88 fL (79-100); MONO # 0.3 x10^3/uL (0.0-1.1); MONO % 3 % (0-9); NEUT # 8.5 x10^3uL (1.8-7.7); NEUT % 92 % (31-73); PLATELET COUNT 240 x10^3/uL (140-400); RED BLOOD COUNT 5.16 x10^6/uL (3.50-5.40); RED CELL DISTRIBUTION WIDTH 12.6 % (11.5-14.5); WHITE BLOOD COUNT 9.2 x10^3/uL (4.0-11.0)
[2021-12-03 11:17] LABS: BACTERIA,URINE MOD /HPF (0-FEW); CLARITY,URINE CLEAR; COLOR,URINE YELLOW; GLUCOSE,URINE NEG (NEG); NITRITE,URINE NEG (NEG); SQUAMOUS EPITHELIAL CELL,UR MOD /LPF; UROBILINOGEN,URINE 0.2 mg/dL (0.2 mg/dL)
[2021-12-03 11:17] LABS: CALCIUM 8.8 mg/dL (8.5-10.1); CREATININE 0.9 mg/dL (0.6-1.0); GFR 76.3; POTASSIUM 3.8 mmol/L (3.5-5.1)
[2021-12-03 11:18] LABS: YEAST,URINE PRESENT /HPF
[2021-12-03 11:23] LABS: ALBUMIN 4.2 g/dL (3.4-5.0); ALBUMIN/GLOBULIN RATIO 1.1 (1.0-1.7); TOTAL BILIRUBIN 1.1 mg/dL (0.2-1.0); TOTAL PROTEIN 7.9 g/dL (6.4-8.2)
[2021-12-03] MEDS ORDERED: ONDA4TAB12 PO (11:41)
[2021-12-03 11:50] VITALS: BP 123/77
[2021-12-03] MEDS: LIDO:MAALOX 1:1 20 ML SINGLE DOSE. PO ONE (11:52)
[2021-12-03] MEDS ORDERED: CEPH500C PO (12:04)
== END 2021-12-03 12:10 | disposition home or self-care (01) ==
LOC: ER 10:09
DX: N30.00 Acute cystitis without hematuria (principal); J45.909 Unspecified asthma, uncomplicated; Z90.49 Acquired absence of other specified parts of digestive tract; Z90.89 Acquired absence of other organs
CPT/HCPCS: 36415; 80053; 81001; 81025; 83690; 85025; 87086; 96361; 96374; 96375; 99284; J2405; J3490; J7030